=== PATIENT | male | born 1940 | race Caucasian/White ===

== ENCOUNTER → 2017-10-02 07:48 | Outpatient (CLI) | payer MEDICARE, SELFPAY ==
[2017-10-02 09:30] LABS: Add Manual Diff / Slide Review NO; Basophils Percent Auto 0.9 % (0-2); Eosinophils Percent Auto 3.2 % (2-4); Hematocrit 35.3 % (41-53); Lymphocytes Percent Auto 22.6 % (25-40); Mean Corpuscular HGB Conc 33.9 % (30-36); Mean Corpuscular Hemoglobin 32.5 PG (26-34); Mean Corpuscular Volume 95.8 fL (80-100); Monocytes Percent Auto 14.3 % (3-14); Neutrophils Absolute Auto 3300 /uL (3000-5900); Platelet Count 288 X10^3/uL (150-400); Red Blood Cell Count 3.69 X10^6/uL (4.5-5.9); Red Cell Distribution Width 15.2 % (11.6-14.8); White Blood Cell Count 5.6 X10^3/uL (4.5-11.0)
[2017-10-02 09:45] LABS: Alanine Aminotransferase 40 IU/L (21-72); Albumin 4.3 g/dL (3.5-5.0); Albumin Globulin Ratio 1.4 (1.0-2.8); Alkaline Phosphatase 94 U/L (38-126); Aspartate Aminotransferase 195 IU/L (17-59); BUN Creatinine Ratio 22.5 (6-22); Bilirubin Total 0.5 mg/dL (0.2-1.3); Blood Urea Nitrogen 18 mg/dL (9-20); Calcium 10.2 mg/dL (8.4-10.2); Carbon Dioxide 29 mmol/L (22-32); Chloride 96 mmol/L (98-107); Cholesterol 172 mg/dL (140-199); Estimated Glomerular Filt Rate > 60.0 mL/min (>60); Globulin 3.1 g/dL (1.7-4.1); Glucose 99 mg/dL (80-110); HDL Cholesterol 57 mg/dL (40-60); HEMOLYSIS < 15 (0-50); LDL Cholesterol Calculated 103 mg/dL (<100); Potassium 4.7 mmol/L (3.4-5.1); Sodium 136 mmol/L (137-145); Total Protein 7.4 g/dL (6.3-8.2); Triglycerides 58 mg/dL (35-150)
[2017-10-02 10:14] LABS: Prostate Specific Antigen Scrn 1.02 ng/mL (0.1-4.0)
== END ==
PROVIDERS: PCP Internal Medicine; Visit Provider Internal Medicine
DX: I10 Essential (primary) hypertension (principal); R74.0 Nonspecific elevation of levels of transaminase and lactic acid dehydrogenase [LDH]
CPT/HCPCS: 36415; 80053; 80061; 85025; G0103

== ENCOUNTER → 2018-04-17 08:17 | Outpatient (CLI) | payer MEDICARE, SELFPAY ==
[2018-04-17 09:22] LABS: Alanine Aminotransferase 37 IU/L (21-72); Albumin 4.6 g/dL (3.5-5.0); Albumin Globulin Ratio 1.7 (1.0-2.8); Alkaline Phosphatase 70 U/L (38-126); Aspartate Aminotransferase 211 IU/L (17-59); BUN Creatinine Ratio 23.3 (6-22); Bilirubin Total 0.8 mg/dL (0.2-1.3); Bilirubin Unconjugated 0.6 mg/dL (0.0-1.1); Blood Urea Nitrogen 21 mg/dL (9-20); Calcium 10.2 mg/dL (8.4-10.2); Carbon Dioxide 26 mmol/L (22-32); Chloride 97 mmol/L (98-107); Cholesterol 146 mg/dL (140-199); Estimated Glomerular Filt Rate > 60.0 mL/min (>60); Globulin 2.7 g/dL (1.7-4.1); Glucose 100 mg/dL (80-110); HDL Cholesterol 58 mg/dL (40-60); HEMOLYSIS < 15 (0-50); LDL Cholesterol Calculated 72 mg/dL (<100); Potassium 4.5 mmol/L (3.4-5.1); Sodium 136 mmol/L (137-145); Total Protein 7.3 g/dL (6.3-8.2); Triglycerides 78 mg/dL (35-150)
== END ==
PROVIDERS: PCP Internal Medicine; Visit Provider Internal Medicine
DX: I10 Essential (primary) hypertension (principal); C24.0 Malignant neoplasm of extrahepatic bile duct; E78.00 Pure hypercholesterolemia, unspecified
CPT/HCPCS: 36415; 80048; 80061; 80076

== ENCOUNTER → 2018-10-15 08:09 | Outpatient (CLI) | payer MEDICARE, SELFPAY ==
[2018-10-15 09:42] LABS: BUN Creatinine Ratio 16.7 (6-22); Blood Urea Nitrogen 15 mg/dL (9-20); Calcium 10.2 mg/dL (8.4-10.2); Carbon Dioxide 29 mmol/L (22-32); Chloride 97 mmol/L (98-107); Estimated Glomerular Filt Rate > 60.0 mL/min (>60); Glucose 99 mg/dL (80-110); HEMOLYSIS < 15 (0-50); Potassium 4.2 mmol/L (3.4-5.1); Sodium 134 mmol/L (137-145)
== END ==
PROVIDERS: PCP Internal Medicine; Visit Provider Internal Medicine
DX: I10 Essential (primary) hypertension (principal)
CPT/HCPCS: 36415; 80048

== ENCOUNTER → 2019-04-19 08:14 | Outpatient (CLI) | payer MEDICARE, SELFPAY ==
[2019-04-19 09:02] LABS: Add Manual Diff / Slide Review NO; Basophils Absolute Auto 0 /uL (0-100); Basophils Percent Auto 0.6 % (0-2); Eosinophils Absolute Auto 200 /uL (0-450); Eosinophils Percent Auto 3.6 % (2-4); Hematocrit 42.6 % (41-53); Hemoglobin 14.6 g/dL (13.5-17.5); Lymphocytes Absolute Auto 1400 /uL (1100-4500); Lymphocytes Percent Auto 20.4 % (25-40); Mean Corpuscular HGB Conc 34.1 % (30-36); Mean Corpuscular Hemoglobin 33.1 PG (26-34); Mean Corpuscular Volume 96.9 fL (80-100); Monocytes Absolute Auto 700 /uL (0-900); Monocytes Percent Auto 9.8 % (3-14); Neutrophils Absolute Auto 4500 /uL (1500-7000); Neutrophils Percent Auto 65.6 % (50-75); Platelet Count 214 X10^3/uL (150-400); Red Cell Distribution Width 12.8 % (11.6-14.8); White Blood Cell Count 6.8 X10^3/uL (4.5-11.0)
[2019-04-19 09:44] LABS: Alanine Aminotransferase 46 IU/L (<50); Albumin 4.5 g/dL (3.5-5.0); Albumin Globulin Ratio 1.7 (1.0-2.8); Alkaline Phosphatase 96 U/L (38-126); Aspartate Aminotransferase 305 IU/L (17-59); BUN Creatinine Ratio 25.6 (6-22); Bilirubin Total 0.6 mg/dL (0.2-1.3); Blood Urea Nitrogen 23 mg/dL (9-20); Calcium 10.8 mg/dL (8.4-10.2); Carbon Dioxide 30 mmol/L (22-32); Chloride 98 mmol/L (98-107); Cholesterol 157 mg/dL (140-199); Estimated Glomerular Filt Rate > 60.0 mL/min (>60); Globulin 2.7 g/dL (1.7-4.1); Glucose 95 mg/dL (80-110); HDL Cholesterol 50 mg/dL (40-60); HEMOLYSIS < 15 (0-50); LDL Cholesterol Calculated 97 mg/dL (<100); Potassium 4.8 mmol/L (3.4-5.1); Sodium 136 mmol/L (137-145); Total Protein 7.2 g/dL (6.3-8.2); Triglycerides 49 mg/dL (35-150)
== END ==
PROVIDERS: PCP Internal Medicine; Visit Provider Internal Medicine
DX: F41.9 Anxiety disorder, unspecified (principal); I10 Essential (primary) hypertension; E78.00 Pure hypercholesterolemia, unspecified; C24.0 Malignant neoplasm of extrahepatic bile duct; I11.0 Hypertensive heart disease with heart failure
CPT/HCPCS: 36415; 80053; 80061; 85025

== ENCOUNTER → 2019-11-01 08:20 | Outpatient (CLI) | payer MEDICARE, SELFPAY ==
[2019-11-01 10:27] LABS: Alanine Aminotransferase 47 IU/L (<50); Albumin 4.5 g/dL (3.5-5.0); Albumin Globulin Ratio 1.7 (1.0-2.8); Alkaline Phosphatase 96 U/L (38-126); Aspartate Aminotransferase 329 IU/L (17-59); BUN Creatinine Ratio 18.8 (6-22); Bilirubin Total 0.5 mg/dL (0.2-1.3); Blood Urea Nitrogen 15 mg/dL (9-20); Calcium 10.1 mg/dL (8.4-10.2); Carbon Dioxide 25 mmol/L (22-32); Chloride 98 mmol/L (98-107); Estimated Glomerular Filt Rate > 60.0 mL/min (>60); Globulin 2.7 g/dL (1.7-4.1); Glucose 102 mg/dL (80-110); HEMOLYSIS < 15 (0-50); Potassium 4.9 mmol/L (3.4-5.1); Sodium 132 mmol/L (137-145); Total Protein 7.2 g/dL (6.3-8.2)
== END ==
PROVIDERS: PCP Internal Medicine
DX: C22.1 Intrahepatic bile duct carcinoma (principal)
CPT/HCPCS: 36415; 80053

== ENCOUNTER → 2019-11-22 08:02 | Outpatient (CLI) | payer MEDICARE, SELFPAY ==
[2019-11-22 09:50] LABS: Alanine Aminotransferase 43 IU/L (<50); Albumin 4.6 g/dL (3.5-5.0); Albumin Globulin Ratio 1.8 (1.0-2.8); Alkaline Phosphatase 111 U/L (38-126); Aspartate Aminotransferase 323 IU/L (17-59); BUN Creatinine Ratio 21.7 (6-22); Bilirubin Total 0.5 mg/dL (0.2-1.3); Blood Urea Nitrogen 18 mg/dL (9-20); Calcium 10.5 mg/dL (8.4-10.2); Carbon Dioxide 26 mmol/L (22-32); Chloride 100 mmol/L (98-107); Estimated Glomerular Filt Rate > 60.0 mL/min (>60); Globulin 2.6 g/dL (1.7-4.1); Glucose 109 mg/dL (80-110); HEMOLYSIS < 15 (0-50); Sodium 134 mmol/L (137-145); Total Protein 7.2 g/dL (6.3-8.2)
== END ==
PROVIDERS: PCP Internal Medicine
DX: C22.1 Intrahepatic bile duct carcinoma (principal)
CPT/HCPCS: 36415; 80053

== ENCOUNTER → 2019-12-16 08:03 | Outpatient (CLI) | payer MEDICARE, SELFPAY ==
[2019-12-16 10:41] LABS: Alanine Aminotransferase 96 IU/L (<50); Albumin 4.4 g/dL (3.5-5.0); Albumin Globulin Ratio 1.5 (1.0-2.8); Alkaline Phosphatase 134 U/L (38-126); Aspartate Aminotransferase 414 IU/L (17-59); BUN Creatinine Ratio 19.8 (6-22); Bilirubin Total 0.5 mg/dL (0.2-1.3); Blood Urea Nitrogen 18 mg/dL (9-20); Calcium 9.9 mg/dL (8.4-10.2); Carbon Dioxide 28 mmol/L (22-32); Chloride 98 mmol/L (98-107); Estimated Glomerular Filt Rate > 60.0 mL/min (>60); Globulin 2.9 g/dL (1.7-4.1); Glucose 82 mg/dL (80-110); HEMOLYSIS < 15 (0-50); Potassium 4.8 mmol/L (3.4-5.1); Sodium 133 mmol/L (137-145); Total Protein 7.3 g/dL (6.3-8.2)
== END ==
PROVIDERS: PCP Internal Medicine
DX: C22.1 Intrahepatic bile duct carcinoma (principal)
CPT/HCPCS: 36415; 80053

== ENCOUNTER → 2020-01-04 08:22 | Outpatient (CLI) | payer MEDICARE, SELFPAY ==
[2020-01-04 09:41] LABS: Alanine Aminotransferase 119 IU/L (<50); Albumin 4.3 g/dL (3.5-5.0); Albumin Globulin Ratio 1.5 (1.0-2.8); Alkaline Phosphatase 158 U/L (38-126); Aspartate Aminotransferase 425 IU/L (17-59); Bilirubin Total 0.4 mg/dL (0.2-1.3); Blood Urea Nitrogen 19 mg/dL (9-20); Calcium 10.4 mg/dL (8.4-10.2); Carbon Dioxide 28 mmol/L (22-32); Chloride 97 mmol/L (98-107); Estimated Glomerular Filt Rate > 60.0 mL/min (>60); Globulin 2.9 g/dL (1.7-4.1); Glucose 81 mg/dL (80-110); HEMOLYSIS < 15 (0-50); Potassium 5.3 mmol/L (3.4-5.1); Sodium 132 mmol/L (137-145); Total Protein 7.2 g/dL (6.3-8.2)
== END ==
PROVIDERS: PCP Internal Medicine
DX: C22.1 Intrahepatic bile duct carcinoma (principal)
CPT/HCPCS: 36415; 80053

== ENCOUNTER → 2020-02-15 08:29 | Outpatient (CLI) | payer MEDICARE, SELFPAY ==
[2020-02-15 09:56] LABS: Alanine Aminotransferase 65 IU/L (<50); Albumin 4.4 g/dL (3.5-5.0); Albumin Globulin Ratio 1.4 (1.0-2.8); Alkaline Phosphatase 128 U/L (38-126); Aspartate Aminotransferase 356 IU/L (17-59); BUN Creatinine Ratio 19.4 (6-22); Bilirubin Total 0.5 mg/dL (0.2-1.3); Blood Urea Nitrogen 19 mg/dL (9-20); Calcium 10.1 mg/dL (8.4-10.2); Carbon Dioxide 29 mmol/L (22-32); Chloride 98 mmol/L (98-107); Estimated Glomerular Filt Rate > 60.0 mL/min (>60); Globulin 3.2 g/dL (1.7-4.1); Glucose 91 mg/dL (80-110); HEMOLYSIS < 15 (0-50); Potassium 4.5 mmol/L (3.4-5.1); Sodium 133 mmol/L (137-145); Total Protein 7.6 g/dL (6.3-8.2)
== END ==
PROVIDERS: PCP Internal Medicine
DX: C22.1 Intrahepatic bile duct carcinoma (principal)
CPT/HCPCS: 36415; 80053

== ENCOUNTER → 2020-03-21 09:23 | Outpatient (CLI) | payer MEDICARE, SELFPAY ==
[2020-03-21 11:27] LABS: Alanine Aminotransferase 192 IU/L (<50); Albumin 4.7 g/dL (3.5-5.0); Albumin Globulin Ratio 1.5 (1.0-2.8); Alkaline Phosphatase 146 U/L (38-126); Aspartate Aminotransferase 499 IU/L (17-59); BUN Creatinine Ratio 20.4 (6-22); Bilirubin Total 0.7 mg/dL (0.2-1.3); Blood Urea Nitrogen 19 mg/dL (9-20); Calcium 10.1 mg/dL (8.4-10.2); Carbon Dioxide 28 mmol/L (22-32); Chloride 97 mmol/L (98-107); Estimated Glomerular Filt Rate > 60.0 mL/min (>60); Globulin 3.1 g/dL (1.7-4.1); Glucose 94 mg/dL (80-110); HEMOLYSIS < 15 (0-50); Potassium 4.9 mmol/L (3.4-5.1); Sodium 132 mmol/L (137-145); Total Protein 7.8 g/dL (6.3-8.2)
== END ==
PROVIDERS: PCP Internal Medicine
DX: C22.1 Intrahepatic bile duct carcinoma (principal)
CPT/HCPCS: 36415; 80053

== ENCOUNTER → 2020-06-05 10:20 | Outpatient (CLI) | payer MEDICARE, SELFPAY ==
[2020-06-05 11:55] LABS: Alanine Aminotransferase 168 IU/L (<50); Albumin 4.2 g/dL (3.5-5.0); Albumin Globulin Ratio 1.3 (1.0-2.8); Alkaline Phosphatase 141 U/L (38-126); Aspartate Aminotransferase 356 IU/L (17-59); BUN Creatinine Ratio 18.9 (6-22); Bilirubin Total 0.2 mg/dL (0.2-1.3); Blood Urea Nitrogen 17 mg/dL (9-20); Carbon Dioxide 29 mmol/L (22-32); Chloride 98 mmol/L (98-107); Estimated Glomerular Filt Rate > 60.0 mL/min (>60); Globulin 3.2 g/dL (1.7-4.1); Glucose 70 mg/dL (80-110); HEMOLYSIS < 15 (0-50); Potassium 4.5 mmol/L (3.4-5.1); Sodium 133 mmol/L (137-145); Total Protein 7.4 g/dL (6.3-8.2)
== END ==
PROVIDERS: PCP Internal Medicine
DX: C22.1 Intrahepatic bile duct carcinoma (principal)
CPT/HCPCS: 36415; 80053

== ENCOUNTER → 2020-11-09 08:33 | Outpatient (CLI) | payer MEDICARE, SELFPAY ==
[2020-11-09 09:51] LABS: Add Manual Diff / Slide Review NO; Basophils Absolute Auto 100 /uL (0-100); Eosinophils Absolute Auto 200 /uL (0-450); Eosinophils Percent Auto 3.4 % (2-4); Hematocrit 43.1 % (41-53); Hemoglobin 14.5 g/dL (13.5-17.5); Lymphocytes Absolute Auto 1400 /uL (1100-4500); Lymphocytes Percent Auto 20.6 % (25-40); Mean Corpuscular HGB Conc 33.7 % (30-36); Mean Corpuscular Hemoglobin 33.2 PG (26-34); Mean Corpuscular Volume 98.5 fL (80-100); Monocytes Absolute Auto 700 /uL (0-900); Monocytes Percent Auto 10.4 % (3-14); Neutrophils Absolute Auto 4300 /uL (1500-7000); Neutrophils Percent Auto 64.6 % (50-75); Platelet Count 235 X10^3/uL (150-400); Red Blood Cell Count 4.38 X10^6/uL (4.5-5.9); Red Cell Distribution Width 13.2 % (11.6-14.8); White Blood Cell Count 6.7 X10^3/uL (4.5-11.0)
[2020-11-09 10:17] LABS: Alanine Aminotransferase 113 IU/L (<50); Albumin 4.5 g/dL (3.5-5.0); Albumin Globulin Ratio 1.5 (1.0-2.8); Alkaline Phosphatase 182 U/L (38-126); Aspartate Aminotransferase 411 IU/L (17-59); Bilirubin Total 0.5 mg/dL (0.2-1.3); Blood Urea Nitrogen 15 mg/dL (9-20); Calcium 10.2 mg/dL (8.4-10.2); Carbon Dioxide 29 mmol/L (22-32); Chloride 97 mmol/L (98-107); Estimated Glomerular Filt Rate > 60.0 mL/min (>60); Globulin 3.1 g/dL (1.7-4.1); Glucose 86 mg/dL (80-110); HEMOLYSIS < 15 (0-50); Potassium 4.4 mmol/L (3.4-5.1); Sodium 132 mmol/L (137-145); Total Protein 7.6 g/dL (6.3-8.2)
== END ==
PROVIDERS: PCP Internal Medicine
DX: C22.1 Intrahepatic bile duct carcinoma (principal); K83.1 Obstruction of bile duct
CPT/HCPCS: 36415; 80053; 85025

== ENCOUNTER → 2021-07-04 12:09 | Outpatient (CLI) | payer MEDICARE, SELFPAY ==
[2021-07-04 12:37] LABS: Add Manual Diff / Slide Review NO; Basophils Absolute Auto 0 /uL (0-100); Basophils Percent Auto 0.2 % (0-2); Eosinophils Absolute Auto 100 /uL (0-450); Eosinophils Percent Auto 0.5 % (2-4); Hematocrit 38.2 % (41-53); Hemoglobin 13.2 g/dL (13.5-17.5); Lymphocytes Absolute Auto 1200 /uL (1100-4500); Lymphocytes Percent Auto 7.7 % (25-40); Mean Corpuscular HGB Conc 34.5 % (30-36); Mean Corpuscular Hemoglobin 33.2 PG (26-34); Mean Corpuscular Volume 96.4 fL (80-100); Monocytes Absolute Auto 1100 /uL (0-900); Neutrophils Absolute Auto 13000 /uL (1500-7000); Neutrophils Percent Auto 84.6 % (50-75); Platelet Count 264 X10^3/uL (150-400); Red Blood Cell Count 3.97 X10^6/uL (4.5-5.9); White Blood Cell Count 15.4 X10^3/uL (4.5-11.0)
[2021-07-04 12:41] LABS: INR 1.2 (0.9-1.3); Prothrombin Time 13.7 SECONDS (10.1-12.7)
[2021-07-04 12:50] LABS: Alanine Aminotransferase 101 IU/L (<50); Albumin 4.2 g/dL (3.5-5.0); Albumin Globulin Ratio 1.1 (1.0-2.8); Alkaline Phosphatase 622 U/L (38-126); Aspartate Aminotransferase 395 IU/L (17-59); BUN Creatinine Ratio 24.3 (6-22); Bilirubin Total 1.3 mg/dL (0.2-1.3); Blood Urea Nitrogen 26 mg/dL (9-20); Calcium 10.2 mg/dL (8.4-10.2); Carbon Dioxide 29 mmol/L (22-32); Chloride 94 mmol/L (98-107); Estimated Glomerular Filt Rate > 60.0 mL/min (>60); Globulin 3.9 g/dL (1.7-4.1); Glucose 111 mg/dL (80-110); HEMOLYSIS < 15 (0-50); Potassium 4.4 mmol/L (3.4-5.1); Sodium 129 mmol/L (137-145); Total Protein 8.1 g/dL (6.3-8.2)
== END ==
PROVIDERS: PCP Internal Medicine
DX: C22.1 Intrahepatic bile duct carcinoma (principal)
CPT/HCPCS: 36415; 80053; 85025; 85610

== ENCOUNTER → 2021-08-02 12:54 | Outpatient (CLI) | payer MEDICARE, SELFPAY ==
[2021-08-02 13:43] LABS: Add Manual Diff / Slide Review NO; Basophils Absolute Auto 100 /uL (0-100); Basophils Percent Auto 0.7 % (0-2); Eosinophils Absolute Auto 200 /uL (0-450); Eosinophils Percent Auto 1.5 % (2-4); Hematocrit 40.4 % (41-53); Hemoglobin 13.9 g/dL (13.5-17.5); Lymphocytes Absolute Auto 1500 /uL (1100-4500); Lymphocytes Percent Auto 13.8 % (25-40); Mean Corpuscular HGB Conc 34.3 % (30-36); Mean Corpuscular Hemoglobin 33.3 PG (26-34); Mean Corpuscular Volume 96.9 fL (80-100); Monocytes Absolute Auto 1000 /uL (0-900); Monocytes Percent Auto 9.1 % (3-14); Neutrophils Absolute Auto 7900 /uL (1500-7000); Neutrophils Percent Auto 74.9 % (50-75); Platelet Count 268 X10^3/uL (150-400); Red Blood Cell Count 4.17 X10^6/uL (4.5-5.9); Red Cell Distribution Width 14.8 % (11.6-14.8); White Blood Cell Count 10.6 X10^3/uL (4.5-11.0)
[2021-08-02 14:46] LABS: Alanine Aminotransferase 152 IU/L (<50); Albumin 4.3 g/dL (3.5-5.0); Albumin Globulin Ratio 1.1 (1.0-2.8); Alkaline Phosphatase 771 U/L (38-126); Aspartate Aminotransferase 546 IU/L (17-59); Bilirubin Total 1.3 mg/dL (0.2-1.3); Blood Urea Nitrogen 18 mg/dL (9-20); Carbon Dioxide 28 mmol/L (22-32); Chloride 98 mmol/L (98-107); Estimated Glomerular Filt Rate > 60.0 mL/min (>60); Globulin 3.9 g/dL (1.7-4.1); Glucose 93 mg/dL (80-110); Sodium 133 mmol/L (137-145); Total Protein 8.2 g/dL (6.3-8.2)
[2021-08-02 14:50] LABS: HEMOLYSIS 62 (0-50)
[2021-08-03 06:42] LABS: Cancer (Carbohydrate) Ag 19-9 1103 U/mL (0-35)
== END ==
PROVIDERS: PCP Internal Medicine; Referring Provider Internal Medicine; Visit Provider Internal Medicine
DX: C22.1 Intrahepatic bile duct carcinoma (principal)
CPT/HCPCS: 36415; 80053; 85025; 86301

== ENCOUNTER 2021-09-06 14:30 | Emergency (ER) | payer MEDICARE, SELFPAY ==
[2021-09-06] VITALS (26 sets, daily range): BP systolic 86–150; BP diastolic 46–65; PULSE 96–121; RESP 19–32; TEMP 37.9–39.4; O2SAT 93–97; BMI 20.7
--- NOTE | 2021-09-06 14:44 | DI.RAD.S_ITS ---
PROCEDURE: XR CHEST 1V INDICATIONS: suspected sepsis TECHNIQUE: One view of the chest was acquired. COMPARISON: [facility], , CHEST 2 VIEW, 01/23/2015, 10:21. FINDINGS: Surgical changes and devices: None. Lungs and pleura: Lungs are clear. No pleural effusions or pneumothorax. Mediastinum: Mediastinal contours appear normal. Heart size is normal. Bones and chest wall: No suspicious bony lesions. Overlying soft tissues appear unremarkable. IMPRESSION: No evidence acute pulmonary process. Dictated by: Nick Su M.D. on 09/06/2021 at 15:22 Approved by: Nick Su M.D. on 09/06/2021 at 15:22
[2021-09-06 14:59] LABS: Add Manual Diff / Slide Review NO; Basophils Absolute Auto 200 /uL (0-100); Basophils Percent Auto 0.7 % (0-2); Eosinophils Absolute Auto 0 /uL (0-450); Hematocrit 36.3 % (41-53); Hemoglobin 12.3 g/dL (13.5-17.5); Lymphocytes Absolute Auto 200 /uL (1100-4500); Lymphocytes Percent Auto 0.9 % (25-40); Mean Corpuscular HGB Conc 33.9 % (30-36); Mean Corpuscular Hemoglobin 33.7 PG (26-34); Mean Corpuscular Volume 99.3 fL (80-100); Monocytes Absolute Auto 200 /uL (0-900); Neutrophils Absolute Auto 22700 /uL (1500-7000); Neutrophils Percent Auto 97.4 % (50-75); Platelet Count 219 X10^3/uL (150-400); Red Blood Cell Count 3.66 X10^6/uL (4.5-5.9); Red Cell Distribution Width 13.7 % (11.6-14.8); White Blood Cell Count 23.3 X10^3/uL (4.5-11.0)
[2021-09-06 15:04] LABS: INR 1.2 (0.9-1.3); Prothrombin Time 13.7 SECONDS (10.1-12.7)
[2021-09-06 15:07] LABS: PTT Partial Thromboplastin Tim 33 SECONDS (26.4-36.2)
--- NOTE | 2021-09-06 15:09 | ED.SEPSIS ---
HPI - Sepsis <Zonia Slater DO - Last Filed: 09/11/21 07:27> General Chief Complaint: Urogenital-Male Mode of arrival: EMS Source: patient and EMS Evaluation Sepsis Screen: Possible Sepsis Risk Sepsis Infection Criteria Present: Suspected New Infection Narrative: Patient is an 81-year-old male with history of hypertension presenting with fever and possible UTI from primary care provider's office. He apparently went there for body aches fever and chills. He was found have elevated heart rate at 112 and temperature 103?. This remains true in the emergency department. Patient is actually quite confused but able to give some history. He actually denies any pain cough shortness of breath abdominal pain nausea vomiting. Really only complaining of body aches. Denies any painful or frequent urination. Has no chest pain. Sounds as though it has been going on for 1-2 days. Review of Systems <Zonia Slater DO - Last Filed: 09/11/21 07:27> Review of Systems Narrative: GENERAL: See HPI HEENT: Denies sinus pain, ear pain, sore throat, difficulty swallowing, neck pain RESPIRATORY: Denies dyspnea, cough, wheezing, hemoptysis, sputum. CARDIOVASCULAR: Denies chest pain, palpitations, orthopnea, edema GASTROINTESTINAL: Denies nausea, vomiting, abdominal pain, diarrhea, constipation, melena. : See HPI MUSCULOSKELETAL: Denies weakness, joint pain, or bony pain SKIN: No rash, no erythema, no pruritus NEUROLOGIC: Denies weakness, dizziness, headache, numbness, change in speech, confusion PSYCHIATRIC: No concerning psychosocial issues. 12 point review of systems is negative except for those stated above and HPI Patient History <Zonia Slater DO - Last Filed: 09/11/21 07:27> Social History Smoking Status: Unknown if ever smoked Smoking Status: Unknown if ever smoked alcohol intake frequency: holidays/special occasions only Substance Use Type: does not use Exam <Zonia Slater DO - Last Filed: 09/11/21 07:27> Initial Vital Signs Initial Vital Signs: Vital Signs Pulse Rate 121 H 09/06/21 14:39 Pulse Oximetry 95 09/06/21 14:39 GENERAL: Alert pleasant well-appearing 81-year-old male HEENT: Head atraumatic,EOMI, pupils reactive, face symmetric, moist mucous membranes CARDIOVASCULAR: Regular rate and rhythm without murmurs, rubs or gallops. RESPIRATORY: Breath sounds equal bilaterally, no wheezes rales or rhonchi. ABDOMEN: Soft, nontender. Normoactive bowel sounds all 4 quadrants. No guarding or rebound. : No CVA tenderness EXTREMITIES: Normal range of motion, no clubbing or edema. Neurovascularly intact NEUROLOGICAL: Alert and oriented x2.Normal gait and speech. Cranial nerves II through XII grossly intact. SKIN: Warm, dry, no laceration, no petechiae, no rashes or lesions. <Nelson Lozano DO - Last Filed: 09/07/21 18:04> Initial Vital Signs Initial Vital Signs: Vital Signs Pulse Rate 121 H 09/06/21 14:39 Pulse Oximetry 95 09/06/21 14:39 <Sam Samuels DO - Last Filed: 09/07/21 11:58> Initial Vital Signs Initial Vital Signs: Vital Signs Pulse Rate 121 H 09/06/21 14:39 Pulse Oximetry 95 09/06/21 14:39 Course <Zonia Slater DO - Last Filed: 09/11/21 07:27> Orders Ordered: Discontinued Medications Acetaminophen (Acetaminophen 325 Mg Tablet) 975 mg PO NOW ONE Stop: 09/06/21 15:31 Last Admin: 09/06/21 15:56 Dose: 975 mg Documented by: ELISSA Sodium Chloride (Normal Saline 0.9%) 1,000 mls @ 1,000 mls/hr IV BOLUS ONE Stop: 09/06/21 15:43 Last Infusion: 09/06/21 17:37 Dose: 0 mls/hr Documented by: Admin: 09/06/21 15:43 Dose: 1,000 mls/hr Documented by: ELISSA Piperacillin Sod/Tazobactam (Sod 4.5 gm/ Sodium Chloride) 100 mls @ 200 mls/hr IV NOW ONE Stop: 09/06/21 15:23 Last Infusion: 09/06/21 17:03 Dose: 0 mls/hr Documented by: Admin: 09/06/21 15:53 Dose: 200 mls/hr Documented by: ELISSA Lactated Ringer's (Lactated Ringers) 1,905.09 mls @ 635.03 mls/hr 30 ml/kg infuse over 3 hr (1905.09 ml) IV NOW ONE Stop: 09/06/21 18:50 Last Infusion: 09/06/21 20:06 Dose: 0 mls/hr Documented by: Admin: 09/06/21 17:03 Dose: 635.03 mls/hr Documented by: TEDDY Vancomycin HCl (Vancomycin) 1,000 mg in 200 mls @ 200 mls/hr IV NOW ONE Stop: 09/06/21 16:50 Last Infusion: 09/06/21 18:42 Dose: 0 mls/hr Documented by: ЮЛИЯ Admin: 09/06/21 17:15 Dose: 200 mls/hr Documented by: TEDDY Metronidazole (Flagyl) 500 mg in 100 mls @ 100 mls/hr IV NOW ONE Stop: 09/06/21 18:14 Last Infusion: 09/06/21 18:42 Dose: 0 mls/hr Documented by: ЮЛИЯ Admin: 09/06/21 17:38 Dose: 100 mls/hr Documented by: TEDDY Piperacillin Sod/Tazobactam (Sod 4.5 gm/ Sodium Chloride) 100 mls @ 200 mls/hr IV Q6H [facility] Last Admin: 09/06/21 22:41 Dose: Not Given Documented by: TEDDY Metronidazole (Flagyl) 500 mg in 100 mls @ 100 mls/hr IV NOW ONE Stop: 09/06/21 21:48 Last Infusion: 09/06/21 22:02 Dose: 0 mls/hr Documented by: Admin: 09/06/21 21:03 Dose: 100 mls/hr Documented by: TEDDY Lactated Ringer's (Lactated Ringers) 1,000 mls @ 100 mls/hr IV CONT [facility] Last Infusion: 09/07/21 08:46 Dose: 0 mls/hr Documented by: Admin: 09/06/21 21:02 Dose: 100 mls/hr Documented by: TEDDY Piperacillin Sod/Tazobactam (Sod 3.375 gm/ Sodium Chloride) 100 mls @ 25 mls/hr IV Q8H [facility] Last Infusion: 09/07/21 09:35 Dose: 0 mls/hr Documented by: Admin: 09/07/21 05:19 Dose: 25 mls/hr Documented by: Infusion: 09/07/21 02:33 Dose: 0 mls/hr Documented by: Admin: 09/06/21 22:17 Dose: 25 mls/hr Documented by: TEDDY Metronidazole (Flagyl) 500 mg in 100 mls @ 100 mls/hr IV Q8H [facility] Last Infusion: 09/07/21 05:16 Dose: 0 mls/hr Documented by: Admin: 09/07/21 04:15 Dose: 100 mls/hr Documented by: GRACE Vancomycin HCl (Vancomycin) 1,250 mg in 250 mls @ 200 mls/hr IV NOW [facility] Stop: 09/07/21 11:00 Sodium Chloride (Normal Saline 0.9%) 1,000 mls @ 100 mls/hr IV CONT [facility] Last Infusion: 09/07/21 10:56 Dose: 0 mls/hr Documented by: Admin: 09/07/21 09:30 Dose: 100 mls/hr Documented by: SARA Morphine Sulfate (Morphine 2 Mg/Ml Inj) 2 mg IV NOW ONE Stop: 09/06/21 17:44 Last Admin: 09/06/21 17:46 Dose: 2 mg Documented by: TEDDY Morphine Sulfate (Morphine 2 Mg/Ml Inj) 2 mg IV NOW ONE Stop: 09/06/21 18:18 Last Admin: 09/06/21 18:21 Dose: 2 mg Documented by: TEDDY Vancomycin HCl (Vancomycin Per Pharmacy) 1 request MISC NOW ONE Stop: 09/07/21 07:13 Last Admin: 09/07/21 07:17 Dose: 1 request Documented by: SARA Vital Signs Vital signs: Vital Signs - 8 hr 09/07/21 10:30 09/07/21 10:50 09/07/21 10:56 Temperature 97.9 F Pulse Rate 78 Respiratory Rate 15 Blood Pressure 119/59 L Pulse Oximetry 96 <Nelson Lozano DO - Last Filed: 09/07/21 18:04> Orders Ordered: Discontinued Medications Acetaminophen (Acetaminophen 325 Mg Tablet) 975 mg PO NOW ONE Stop: 09/06/21 15:31 Last Admin: 09/06/21 15:56 Dose: 975 mg Documented by: ELISSA Sodium Chloride (Normal Saline 0.9%) 1,000 mls @ 1,000 mls/hr IV BOLUS ONE Stop: 09/06/21 15:43 Last Infusion: 09/06/21 17:37 Dose: 0 mls/hr Documented by: Admin: 09/06/21 15:43 Dose: 1,000 mls/hr Documented by: ELISSA Piperacillin Sod/Tazobactam (Sod 4.5 gm/ Sodium Chloride) 100 mls @ 200 mls/hr IV NOW ONE Stop: 09/06/21 15:23 Last Infusion: 09/06/21 17:03 Dose: 0 mls/hr Documented by: Admin: 09/06/21 15:53 Dose: 200 mls/hr Documented by: ELISSA Lactated Ringer's (Lactated Ringers) 1,905.09 mls @ 635.03 mls/hr 30 ml/kg infuse over 3 hr (1905.09 ml) IV NOW ONE Stop: 09/06/21 18:50 Last Infusion: 09/06/21 20:06 Dose: 0 mls/hr Documented by: Admin: 09/06/21 17:03 Dose: 635.03 mls/hr Documented by: TEDDY Vancomycin HCl (Vancomycin) 1,000 mg in 200 mls @ 200 mls/hr IV NOW ONE Stop: 09/06/21 16:50 Last Infusion: 09/06/21 18:42 Dose: 0 mls/hr Documented by: ЮЛИЯ Admin: 09/06/21 17:15 Dose: 200 mls/hr Documented by: TEDDY Metronidazole (Flagyl) 500 mg in 100 mls @ 100 mls/hr IV NOW ONE Stop: 09/06/21 18:14 Last Infusion: 09/06/21 18:42 Dose: 0 mls/hr Documented by: ЮЛИЯ Admin: 09/06/21 17:38 Dose: 100 mls/hr Documented by: TEDDY Piperacillin Sod/Tazobactam (Sod 4.5 gm/ Sodium Chloride) 100 mls @ 200 mls/hr IV Q6H [facility] Last Admin: 09/06/21 22:41 Dose: Not Given Documented by: TEDDY Metronidazole (Flagyl) 500 mg in 100 mls @ 100 mls/hr IV NOW ONE Stop: 09/06/21 21:48 Last Infusion: 09/06/21 22:02 Dose: 0 mls/hr Documented by: Admin: 09/06/21 21:03 Dose: 100 mls/hr Documented by: TEDDY Lactated Ringer's (Lactated Ringers) 1,000 mls @ 100 mls/hr IV CONT [facility] Last Infusion: 09/07/21 08:46 Dose: 0 mls/hr Documented by: Admin: 09/06/21 21:02 Dose: 100 mls/hr Documented by: TEDDY Piperacillin Sod/Tazobactam (Sod 3.375 gm/ Sodium Chloride) 100 mls @ 25 mls/hr IV Q8H [facility] Last Infusion: 09/07/21 09:35 Dose: 0 mls/hr Documented by: Admin: 09/07/21 05:19 Dose: 25 mls/hr Documented by: Infusion: 09/07/21 02:33 Dose: 0 mls/hr Documented by: Admin: 09/06/21 22:17 Dose: 25 mls/hr Documented by: TEDDY Metronidazole (Flagyl) 500 mg in 100 mls @ 100 mls/hr IV Q8H [facility] Last Infusion: 09/07/21 05:16 Dose: 0 mls/hr Documented by: Admin: 09/07/21 04:15 Dose: 100 mls/hr Documented by: GRACE Vancomycin HCl (Vancomycin) 1,250 mg in 250 mls @ 200 mls/hr IV NOW [facility] Stop: 09/07/21 11:00 Sodium Chloride (Normal Saline 0.9%) 1,000 mls @ 100 mls/hr IV CONT [facility] Last Infusion: 09/07/21 10:56 Dose: 0 mls/hr Documented by: Admin: 09/07/21 09:30 Dose: 100 mls/hr Documented by: SARA Morphine Sulfate (Morphine 2 Mg/Ml Inj) 2 mg IV NOW ONE Stop: 09/06/21 17:44 Last Admin: 09/06/21 17:46 Dose: 2 mg Documented by: TEDDY Morphine Sulfate (Morphine 2 Mg/Ml Inj) 2 mg IV NOW ONE Stop: 09/06/21 18:18 Last Admin: 09/06/21 18:21 Dose: 2 mg Documented by: TEDDY Vancomycin HCl (Vancomycin Per Pharmacy) 1 request MISC NOW ONE Stop: 09/07/21 07:13 Last Admin: 09/07/21 07:17 Dose: 1 request Documented by: SARA Vital Signs Vital signs: Vital Signs - 8 hr 09/07/21 10:30 09/07/21 10:50 09/07/21 10:56 Temperature 97.9 F Pulse Rate 78 Respiratory Rate 15 Blood Pressure 119/59 L Pulse Oximetry 96 <Sam Samuels DO - Last Filed: 09/07/21 11:58> Orders Ordered: Discontinued Medications Acetaminophen (Acetaminophen 325 Mg Tablet) 975 mg PO NOW ONE Stop: 09/06/21 15:31 Last Admin: 09/06/21 15:56 Dose: 975 mg Documented by: ELISSA Sodium Chloride (Normal Saline 0.9%) 1,000 mls @ 1,000 mls/hr IV BOLUS ONE Stop: 09/06/21 15:43 Last Infusion: 09/06/21 17:37 Dose: 0 mls/hr Documented by: Admin: 09/06/21 15:43 Dose: 1,000 mls/hr Documented by: ELISSA Piperacillin Sod/Tazobactam (Sod 4.5 gm/ Sodium Chloride) 100 mls @ 200 mls/hr IV NOW ONE Stop: 09/06/21 15:23 Last Infusion: 09/06/21 17:03 Dose: 0 mls/hr Documented by: Admin: 09/06/21 15:53 Dose: 200 mls/hr Documented by: ELISSA Lactated Ringer's (Lactated Ringers) 1,905.09 mls @ 635.03 mls/hr 30 ml/kg infuse over 3 hr (1905.09 ml) IV NOW ONE Stop: 09/06/21 18:50 Last Infusion: 09/06/21 20:06 Dose: 0 mls/hr Documented by: Admin: 09/06/21 17:03 Dose: 635.03 mls/hr Documented by: TEDDY Vancomycin HCl (Vancomycin) 1,000 mg in 200 mls @ 200 mls/hr IV NOW ONE Stop: 09/06/21 16:50 Last Infusion: 09/06/21 18:42 Dose: 0 mls/hr Documented by: ЮЛИЯ Admin: 09/06/21 17:15 Dose: 200 mls/hr Documented by: TEDDY Metronidazole (Flagyl) 500 mg in 100 mls @ 100 mls/hr IV NOW ONE Stop: 09/06/21 18:14 Last Infusion: 09/06/21 18:42 Dose: 0 mls/hr Documented by: ЮЛИЯ Admin: 09/06/21 17:38 Dose: 100 mls/hr Documented by: TEDDY Piperacillin Sod/Tazobactam (Sod 4.5 gm/ Sodium Chloride) 100 mls @ 200 mls/hr IV Q6H [facility] Last Admin: 09/06/21 22:41 Dose: Not Given Documented by: TEDDY Metronidazole (Flagyl) 500 mg in 100 mls @ 100 mls/hr IV NOW ONE Stop: 09/06/21 21:48 Last Infusion: 09/06/21 22:02 Dose: 0 mls/hr Documented by: Admin: 09/06/21 21:03 Dose: 100 mls/hr Documented by: TEDDY Lactated Ringer's (Lactated Ringers) 1,000 mls @ 100 mls/hr IV CONT [facility] Last Infusion: 09/07/21 08:46 Dose: 0 mls/hr Documented by: Admin: 09/06/21 21:02 Dose: 100 mls/hr Documented by: TEDDY Piperacillin Sod/Tazobactam (Sod 3.375 gm/ Sodium Chloride) 100 mls @ 25 mls/hr IV Q8H [facility] Last Infusion: 09/07/21 09:35 Dose: 0 mls/hr Documented by: Admin: 09/07/21 05:19 Dose: 25 mls/hr Documented by: Infusion: 09/07/21 02:33 Dose: 0 mls/hr Documented by: Admin: 09/06/21 22:17 Dose: 25 mls/hr Documented by: TEDDY Metronidazole (Flagyl) 500 mg in 100 mls @ 100 mls/hr IV Q8H [facility] Last Infusion: 09/07/21 05:16 Dose: 0 mls/hr Documented by: Admin: 09/07/21 04:15 Dose: 100 mls/hr Documented by: GRACE Vancomycin HCl (Vancomycin) 1,250 mg in 250 mls @ 200 mls/hr IV NOW [facility] Stop: 09/07/21 11:00 Sodium Chloride (Normal Saline 0.9%) 1,000 mls @ 100 mls/hr IV CONT [facility] Last Infusion: 09/07/21 10:56 Dose: 0 mls/hr Documented by: Admin: 09/07/21 09:30 Dose: 100 mls/hr Documented by: SARA Morphine Sulfate (Morphine 2 Mg/Ml Inj) 2 mg IV NOW ONE Stop: 09/06/21 17:44 Last Admin: 09/06/21 17:46 Dose: 2 mg Documented by: TEDDY Morphine Sulfate (Morphine 2 Mg/Ml Inj) 2 mg IV NOW ONE Stop: 09/06/21 18:18 Last Admin: 09/06/21 18:21 Dose: 2 mg Documented by: TEDDY Vancomycin HCl (Vancomycin Per Pharmacy) 1 request MISC NOW ONE Stop: 09/07/21 07:13 Last Admin: 09/07/21 07:17 Dose: 1 request Documented by: SARA Vital Signs Vital signs: Vital Signs - 8 hr 09/07/21 10:30 09/07/21 10:50 09/07/21 10:56 Temperature 97.9 F Pulse Rate 78 Respiratory Rate 15 Blood Pressure 119/59 L Pulse Oximetry 96 Sepsis Guideline Criteria <DO Lisa Oliver Last Filed: 09/11/21 07:27> Level 1 - Infection Sepsis Infection Criteria Present: Suspected New Infection Treatment Initiated Antibiotics:: IV antimicrobials will be initiated as soon as possible after recognition of sepsis state and within one hour for both sepsis and septic shock. MDM - Sepsis <DO Lisa Oilver Last Filed: 09/11/21 07:27> Lab Data Result diagrams: 09/07/21 05:53 09/07/21 05:53 Labs: Lab Results 09/06/21 09/06/21 09/06/21 Range/Units 14:50 14:50 14:50 WBC 23.3 H (4.5-11.0) X10^3/uL RBC 3.66 L (4.5-5.9) X10^6/uL Hgb 12.3 L (13.5-17.5) g/dL Hct 36.3 L (41-53) % MCV 99.3 (80-100) fL MCH 33.7 (26-34) PG MCHC 33.9 (30-36) % RDW 13.7 (11.6-14.8) % Plt Count 219 (150-400) X10^3/uL Neut % (Auto) 97.4 H (50-75) % Lymph % (Auto) 0.9 L (25-40) % [place] % (Auto) 1.0 L (3-14) % Eos % (Auto) 0.0 L (2-4) % Baso % (Auto) 0.7 (0-2) % Neut # (Auto) 47391 H (0860-6672) /uL Lymph # (Auto) 200 L (1415-0668) /uL [place] # (Auto) 200 (0-900) /uL Eos # (Auto) 0 (0-450) /uL Baso # (Auto) 200 H (0-100) /uL Total Counted Seg Neutrophils % (38-70) % Band Neutrophils % (3-7) % Lymphocytes % (Manual) (25-45) % Monocytes % (Manual) (2-11) % Neutrophils # (Manual) (3851-6646) /uL RBC Morphology PT (10.1-12.7) SECONDS INR (0.9-1.3) APTT (26.4-36.2) SECONDS Sodium 132 L (137-145) mmol/L Potassium 3.9 (3.4-5.1) mmol/L Chloride 98 (98-107) mmol/L Carbon Dioxide 21 L (22-32) mmol/L BUN 16 (9-20) mg/dL Creatinine 1.22 (0.66-1.25) mg/dL Estimated GFR 59 L (>60) mL/min BUN/Creatinine Ratio 13.1 (6-22) Glucose 133 H (80-110) mg/dL Lactate 3.3 H (0.7-2.1) mmol/L Calcium 9.6 (8.4-10.2) mg/dL Total Bilirubin 5.6 H (0.2-1.3) mg/dL AST 552 H (17-59) IU/L ALT 150 H (<50) IU/L Alkaline Phosphatase 719 H (38-126) U/L Total Creatine Kinase (55-170) U/L CK-MB (CK-2) CK-MB (CK-2) Rel Index Troponin I (0.01-0.034) ng/mL Total Protein 8.2 (6.3-8.2) g/dL Albumin 4.0 (3.5-5.0) g/dL Globulin 4.2 H (1.7-4.1) g/dL Albumin/Globulin Ratio 1.0 (1.0-2.8) Lipase 39 (23-300) U/L Procalcitonin 10.2 H (<0.5) ng/mL Urine Color Urine Appearance Urine pH (4.5-8.0) Ur Specific [place] (1.000-1.035) Urine Protein (Negative) Urine Glucose (UA) (Negative) g/dL Urine Ketones (NEGATIVE) Urine Occult Blood (Negative) Urine Nitrate (Negative) Urine Bilirubin (NEGATIVE) Ur Bilirubin Confirm (Negative) Urine Urobilinogen (0.2) E.U./dL Ur Leukocyte Esterase (NEGATIVE) Urine RBC Urine WBC Ur Squamous Epith Cells Ur Transition Epith Cell Ur Renal Epithelial Cell Calcium Oxalate Crystal Uric Acid Crystals Triple Phos Crystals Other Crystals Amorphous Sediment Urine Bacteria Hyaline Casts Granular Casts RBC Casts WBC Casts Other Casts Urine Mucus Urine Trichomonas Urine Yeast Urine Sperm Ur Culture Indicated? Micro UA Comment A. baumannii (PCR) (Not Detect) Mela albicans (PCR) (Not Detect) C. glabrata (PCR) (Not Detect) C. krusei (PCR) (Not Detect) C. parapsilosis (PCR) (Not Detect) C. tropicalis (PCR) (Not Detect) SARS-CoV-2 (PCR) (Negative) Enterobacteriac sp PCR (Not Detect) E. cloacae complex PCR (Not Detect) Enterococcus sp PCR (Not Detect) E. coli (PCR) (Not Detect) H. influenzae (PCR) (Not Detect) Klebsiella oxytoca PCR (Not Detect) Klebsiella pneumoniae (Not Detect) List. monocytogenes PCR (Not Detect) N. meningitidis (PCR) (Not Detect) Proteus species (PCR) (Not Detect) Serratia marcescens PCR (Not Detect) Staphylococcus sp PCR (Not Detect) Staph aureus (PCR) (Not Detect) mecA-Methicil Res Gene Streptococcus sp PCR (Not Detect) Group A Strep (PCR) (Not Detect) Strep agalactiae (PCR) (Not Detect) Strep pneumoniae (PCR) (Not Detect) P. aeruginosa (PCR) (Not Detect) Britt/B-Vanco Res Genes KPC-Carbap Res Gene PCR 09/06/21 09/06/21 09/06/21 Range/Units 14:50 14:50 14:50 WBC (4.5-11.0) X10^3/uL RBC (4.5-5.9) X10^6/uL Hgb (13.5-17.5) g/dL Hct (41-53) % MCV (80-100) fL MCH (26-34) PG MCHC (30-36) % RDW (11.6-14.8) % Plt Count (150-400) X10^3/uL Neut % (Auto) (50-75) % Lymph % (Auto) (25-40) % [place] % (Auto) (3-14) % Eos % (Auto) (2-4) % Baso % (Auto) (0-2) % Neut # (Auto) (8527-6824) /uL Lymph # (Auto) (7338-6943) /uL [place] # (Auto) (0-900) /uL Eos # (Auto) (0-450) /uL Baso # (Auto) (0-100) /uL Total Counted Seg Neutrophils % (38-70) % Band Neutrophils % (3-7) % Lymphocytes % (Manual) (25-45) % Monocytes % (Manual) (2-11) % Neutrophils # (Manual) (9533-3416) /uL RBC Morphology PT 13.7 H (10.1-12.7) SECONDS INR 1.2 (0.9-1.3) APTT 33 (26.4-36.2) SECONDS Sodium (137-145) mmol/L Potassium (3.4-5.1) mmol/L Chloride (98-107) mmol/L Carbon Dioxide (22-32) mmol/L BUN (9-20) mg/dL Creatinine (0.66-1.25) mg/dL Estimated GFR (>60) mL/min BUN/Creatinine Ratio (6-22) Glucose (80-110) mg/dL Lactate (0.7-2.1) mmol/L Calcium (8.4-10.2) mg/dL Total Bilirubin (0.2-1.3) mg/dL AST (17-59) IU/L ALT (<50) IU/L Alkaline Phosphatase (38-126) U/L Total Creatine Kinase 62 (55-170) U/L CK-MB (CK-2) TNP CK-MB (CK-2) Rel Index TNP Troponin I < 0.012 (0.01-0.034) ng/mL Total Protein (6.3-8.2) g/dL Albumin (3.5-5.0) g/dL Globulin (1.7-4.1) g/dL Albumin/Globulin Ratio (1.0-2.8) Lipase (23-300) U/L Procalcitonin (<0.5) ng/mL Urine Color Urine Appearance Urine pH (4.5-8.0) Ur Specific [place] (1.000-1.035) Urine Protein (Negative) Urine Glucose (UA) (Negative) g/dL Urine Ketones (NEGATIVE) Urine Occult Blood (Negative) Urine Nitrate (Negative) Urine Bilirubin (NEGATIVE) Ur Bilirubin Confirm (Negative) Urine Urobilinogen (0.2) E.U./dL Ur Leukocyte Esterase (NEGATIVE) Urine RBC Urine WBC Ur Squamous Epith Cells Ur Transition Epith Cell Ur Renal Epithelial Cell Calcium Oxalate Crystal Uric Acid Crystals Triple Phos Crystals Other Crystals Amorphous Sediment Urine Bacteria Hyaline Casts Granular Casts RBC Casts WBC Casts Other Casts Urine Mucus Urine Trichomonas Urine Yeast Urine Sperm Ur Culture Indicated? Micro UA Comment A. baumannii (PCR) Not detected (Not Detect) Mela albicans (PCR) Not detected (Not Detect) C. glabrata (PCR) Not detected (Not Detect) C. krusei (PCR) Not detected (Not Detect) C. parapsilosis (PCR) Not detected (Not Detect) C. tropicalis (PCR) Not detected (Not Detect) SARS-CoV-2 (PCR) (Negative) Enterobacteriac sp PCR Not detected (Not Detect) E. cloacae complex PCR Not detected (Not Detect) Enterococcus sp PCR Not detected (Not Detect) E. coli (PCR) Not detected (Not Detect) H. influenzae (PCR) Not detected (Not Detect) Klebsiella oxytoca PCR Not detected (Not Detect) Klebsiella pneumoniae Not detected (Not Detect) List. monocytogenes PCR Not detected (Not Detect) N. meningitidis (PCR) Not detected (Not Detect) Proteus species (PCR) Not detected (Not Detect) Serratia marcescens PCR Not detected (Not Detect) Staphylococcus sp PCR Not detected (Not Detect) Staph aureus (PCR) Not detected (Not Detect) mecA-Methicil Res Gene Not Reportable Streptococcus sp PCR Not detected (Not Detect) Group A Strep (PCR) Not detected (Not Detect) Strep agalactiae (PCR) Not detected (Not Detect) Strep pneumoniae (PCR) Not detected (Not Detect) P. aeruginosa (PCR) Not detected (Not Detect) Britt/B-Vanco Res Genes Not Reportable KPC-Carbap Res Gene PCR Not Reportable 09/06/21 09/06/21 09/06/21 Range/Units 15:06 15:15 15:30 WBC (4.5-11.0) X10^3/uL RBC (4.5-5.9) X10^6/uL Hgb (13.5-17.5) g/dL Hct (41-53) % MCV (80-100) fL MCH (26-34) PG MCHC (30-36) % RDW (11.6-14.8) % Plt Count (150-400) X10^3/uL Neut % (Auto) (50-75) % Lymph % (Auto) (25-40) % [place] % (Auto) (3-14) % Eos % (Auto) (2-4) % Baso % (Auto) (0-2) % Neut # (Auto) (6834-1034) /uL Lymph # (Auto) (5215-9555) /uL [place] # (Auto) (0-900) /uL Eos # (Auto) (0-450) /uL Baso # (Auto) (0-100) /uL Total Counted Seg Neutrophils % (38-70) % Band Neutrophils % (3-7) % Lymphocytes % (Manual) (25-45) % Monocytes % (Manual) (2-11) % Neutrophils # (Manual) (3619-6068) /uL RBC Morphology PT (10.1-12.7) SECONDS INR (0.9-1.3) APTT (26.4-36.2) SECONDS Sodium (137-145) mmol/L Potassium (3.4-5.1) mmol/L Chloride (98-107) mmol/L Carbon Dioxide (22-32) mmol/L BUN (9-20) mg/dL Creatinine (0.66-1.25) mg/dL Estimated GFR (>60) mL/min BUN/Creatinine Ratio (6-22) Glucose (80-110) mg/dL Lactate (0.7-2.1) mmol/L Calcium (8.4-10.2) mg/dL Total Bilirubin (0.2-1.3) mg/dL AST (17-59) IU/L ALT (<50) IU/L Alkaline Phosphatase (38-126) U/L Total Creatine Kinase (55-170) U/L CK-MB (CK-2) CK-MB (CK-2) Rel Index Troponin I (0.01-0.034) ng/mL Total Protein (6.3-8.2) g/dL Albumin (3.5-5.0) g/dL Globulin (1.7-4.1) g/dL Albumin/Globulin Ratio (1.0-2.8) Lipase (23-300) U/L Procalcitonin (<0.5) ng/mL Urine Color [place] Urine Appearance Clear Urine pH 5.0 (4.5-8.0) Ur Specific [place] 1.010 (1.000-1.035) Urine Protein 1+ H (Negative) Urine Glucose (UA) Trace H (Negative) g/dL Urine Ketones Negative (NEGATIVE) Urine Occult Blood 2+ H (Negative) Urine Nitrate Positive H (Negative) Urine Bilirubin 1+ H (NEGATIVE) Ur Bilirubin Confirm Positive H (Negative) Urine Urobilinogen 0.2 (0.2) E.U./dL Ur Leukocyte Esterase Negative (NEGATIVE) Urine RBC Cancelled 5-10/hpf H Urine WBC Cancelled 1-5/hpf Ur Squamous Epith Cells Cancelled 0-1 /hpf Ur Transition Epith Cell Cancelled Ur Renal Epithelial Cell Cancelled Calcium Oxalate Crystal Cancelled Uric Acid Crystals Cancelled Triple Phos Crystals Cancelled Other Crystals Cancelled Amorphous Sediment Cancelled Urine Bacteria Cancelled Few (2-10) H Hyaline Casts Cancelled 5-10/lpf Granular Casts Cancelled 5-10/lpf RBC Casts Cancelled WBC Casts Cancelled 0-1/lpf Other Casts Cancelled Urine Mucus Cancelled 1+ H Urine Trichomonas Cancelled Urine Yeast Cancelled Urine Sperm Cancelled Ur Culture Indicated? Cancelled Specimen cultured Micro UA Comment Cancelled A. baumannii (PCR) (Not Detect) Mela albicans (PCR) (Not Detect) C. glabrata (PCR) (Not Detect) C. krusei (PCR) (Not Detect) C. parapsilosis (PCR) (Not Detect) C. tropicalis (PCR) (Not Detect) SARS-CoV-2 (PCR) Negative (Negative) Enterobacteriac sp PCR (Not Detect) E. cloacae complex PCR (Not Detect) Enterococcus sp PCR (Not Detect) E. coli (PCR) (Not Detect) H. influenzae (PCR) (Not Detect) Klebsiella oxytoca PCR (Not Detect) Klebsiella pneumoniae (Not Detect) List. monocytogenes PCR (Not Detect) N. meningitidis (PCR) (Not Detect) Proteus species (PCR) (Not Detect) Serratia marcescens PCR (Not Detect) Staphylococcus sp PCR (Not Detect) Staph aureus (PCR) (Not Detect) mecA-Methicil Res Gene Streptococcus sp PCR (Not Detect) Group A Strep (PCR) (Not Detect) Strep agalactiae (PCR) (Not Detect) Strep pneumoniae (PCR) (Not Detect) P. aeruginosa (PCR) (Not Detect) Britt/B-Vanco Res Genes KPC-Carbap Res Gene PCR 09/06/21 09/07/21 09/07/21 Range/Units 17:41 05:53 05:53 WBC 33.6 H* (4.5-11.0) X10^3/uL RBC 3.13 L (4.5-5.9) X10^6/uL Hgb 10.4 L (13.5-17.5) g/dL Hct 31.4 L (41-53) % MCV 100.1 H (80-100) fL MCH 33.2 (26-34) PG MCHC 33.2 (30-36) % RDW 13.8 (11.6-14.8) % Plt Count 179 (150-400) X10^3/uL Neut % (Auto) Not Reportable (50-75) % Lymph % (Auto) Not Reportable (25-40) % Buchanan % (Auto) Not Reportable (3-14) % Eos % (Auto) Not Reportable (2-4) % Baso % (Auto) Not Reportable (0-2) % Neut # (Auto) (9127-9247) /uL Lymph # (Auto) Not Reportable (6262-1485) /uL [place]anan # (Auto) Not Reportable (0-900) /uL Eos # (Auto) (0-450) /uL Baso # (Auto) Not Reportable (0-100) /uL Total Counted 100 Seg Neutrophils % 77.0 H (38-70) % Band Neutrophils % 19.0 H (3-7) % Lymphocytes % (Manual) 2.0 L (25-45) % Monocytes % (Manual) 2.0 (2-11) % Neutrophils # (Manual) 25735 H (5266-9675) /uL RBC Morphology Normal morphology PT (10.1-12.7) SECONDS INR (0.9-1.3) APTT (26.4-36.2) SECONDS Sodium 130 L (137-145) mmol/L Potassium 3.9 (3.4-5.1) mmol/L Chloride 104 (98-107) mmol/L Carbon Dioxide 21 L (22-32) mmol/L BUN 21 H (9-20) mg/dL Creatinine 0.88 (0.66-1.25) mg/dL Estimated GFR > 60 (>60) mL/min BUN/Creatinine Ratio 23.9 H (6-22) Glucose 124 H (80-110) mg/dL Lactate 3.3 H (0.7-2.1) mmol/L Calcium 8.5 (8.4-10.2) mg/dL Total Bilirubin 5.9 H (0.2-1.3) mg/dL AST 626 H (17-59) IU/L ALT 234 H (<50) IU/L Alkaline Phosphatase 381 H (38-126) U/L Total Creatine Kinase (55-170) U/L CK-MB (CK-2) CK-MB (CK-2) Rel Index Troponin I (0.01-0.034) ng/mL Total Protein 6.5 (6.3-8.2) g/dL Albumin 3.0 L (3.5-5.0) g/dL Globulin 3.5 (1.7-4.1) g/dL Albumin/Globulin Ratio 0.9 L (1.0-2.8) Lipase 21 L (23-300) U/L Procalcitonin 23.7 H (<0.5) ng/mL Urine Color Urine Appearance Urine pH (4.5-8.0) Ur Specific [place] (1.000-1.035) Urine Protein (Negative) Urine Glucose (UA) (Negative) g/dL Urine Ketones (NEGATIVE) Urine Occult Blood (Negative) Urine Nitrate (Negative) Urine Bilirubin (NEGATIVE) Ur Bilirubin Confirm (Negative) Urine Urobilinogen (0.2) E.U./dL Ur Leukocyte Esterase (NEGATIVE) Urine RBC Urine WBC Ur Squamous Epith Cells Ur Transition Epith Cell Ur Renal Epithelial Cell Calcium Oxalate Crystal Uric Acid Crystals Triple Phos Crystals Other Crystals Amorphous Sediment Urine Bacteria Hyaline Casts Granular Casts RBC Casts WBC Casts Other Casts Urine Mucus Urine Trichomonas Urine Yeast Urine Sperm Ur Culture Indicated? Micro UA Comment A. baumannii (PCR) (Not Detect) Mela albicans (PCR) (Not Detect) C. glabrata (PCR) (Not Detect) C. krusei (PCR) (Not Detect) C. parapsilosis (PCR) (Not Detect) C. tropicalis (PCR) (Not Detect) SARS-CoV-2 (PCR) (Negative) Enterobacteriac sp PCR (Not Detect) E. cloacae complex PCR (Not Detect) Enterococcus sp PCR (Not Detect) E. coli (PCR) (Not Detect) H. influenzae (PCR) (Not Detect) Klebsiella oxytoca PCR (Not Detect) Klebsiella pneumoniae (Not Detect) List. monocytogenes PCR (Not Detect) N. meningitidis (PCR) (Not Detect) Proteus species (PCR) (Not Detect) Serratia marcescens PCR (Not Detect) Staphylococcus sp PCR (Not Detect) Staph aureus (PCR) (Not Detect) mecA-Methicil Res Gene Streptococcus sp PCR (Not Detect) Group A Strep (PCR) (Not Detect) Strep agalactiae (PCR) (Not Detect) Strep pneumoniae (PCR) (Not Detect) P. aeruginosa (PCR) (Not Detect) Britt/B-Vanco Res Genes KPC-Carbap Res Gene PCR 09/07/21 Range/Units 05:53 WBC (4.5-11.0) X10^3/uL RBC (4.5-5.9) X10^6/uL Hgb (13.5-17.5) g/dL Hct (41-53) % MCV (80-100) fL MCH (26-34) PG MCHC (30-36) % RDW (11.6-14.8) % Plt Count (150-400) X10^3/uL Neut % (Auto) (50-75) % Lymph % (Auto) (25-40) % Buchanan % (Auto) (3-14) % Eos % (Auto) (2-4) % Baso % (Auto) (0-2) % Neut # (Auto) (4500-5593) /uL Lymph # (Auto) (0222-5800) /uL [place] # (Auto) (0-900) /uL Eos # (Auto) (0-450) /uL Baso # (Auto) (0-100) /uL Total Counted Seg Neutrophils % (38-70) % Band Neutrophils % (3-7) % Lymphocytes % (Manual) (25-45) % Monocytes % (Manual) (2-11) % Neutrophils # (Manual) (7130-1147) /uL RBC Morphology PT (10.1-12.7) SECONDS INR (0.9-1.3) APTT (26.4-36.2) SECONDS Sodium (137-145) mmol/L Potassium (3.4-5.1) mmol/L Chloride (98-107) mmol/L Carbon Dioxide (22-32) mmol/L BUN (9-20) mg/dL Creatinine (0.66-1.25) mg/dL Estimated GFR (>60) mL/min BUN/Creatinine Ratio (6-22) Glucose (80-110) mg/dL Lactate 1.8 (0.7-2.1) mmol/L Calcium (8.4-10.2) mg/dL Total Bilirubin (0.2-1.3) mg/dL AST (17-59) IU/L ALT (<50) IU/L Alkaline Phosphatase (38-126) U/L Total Creatine Kinase (55-170) U/L CK-MB (CK-2) CK-MB (CK-2) Rel Index Troponin I (0.01-0.034) ng/mL Total Protein (6.3-8.2) g/dL Albumin (3.5-5.0) g/dL Globulin (1.7-4.1) g/dL Albumin/Globulin Ratio (1.0-2.8) Lipase (23-300) U/L Procalcitonin (<0.5) ng/mL Urine Color Urine Appearance Urine pH (4.5-8.0) Ur Specific [place] (1.000-1.035) Urine Protein (Negative) Urine Glucose (UA) (Negative) g/dL Urine Ketones (NEGATIVE) Urine Occult Blood (Negative) Urine Nitrate (Negative) Urine Bilirubin (NEGATIVE) Ur Bilirubin Confirm (Negative) Urine Urobilinogen (0.2) E.U./dL Ur Leukocyte Esterase (NEGATIVE) Urine RBC Urine WBC Ur Squamous Epith Cells Ur Transition Epith Cell Ur Renal Epithelial Cell Calcium Oxalate Crystal Uric Acid Crystals Triple Phos Crystals Other Crystals Amorphous Sediment Urine Bacteria Hyaline Casts Granular Casts RBC Casts WBC Casts Other Casts Urine Mucus Urine Trichomonas Urine Yeast Urine Sperm Ur Culture Indicated? Micro UA Comment A. baumannii (PCR) (Not Detect) Mela albicans (PCR) (Not Detect) C. glabrata (PCR) (Not Detect) C. krusei (PCR) (Not Detect) C. parapsilosis (PCR) (Not Detect) C. tropicalis (PCR) (Not Detect) SARS-CoV-2 (PCR) (Negative) Enterobacteriac sp PCR (Not Detect) E. cloacae complex PCR (Not Detect) Enterococcus sp PCR (Not Detect) E. coli (PCR) (Not Detect) H. influenzae (PCR) (Not Detect) Klebsiella oxytoca PCR (Not Detect) Klebsiella pneumoniae (Not Detect) List. monocytogenes PCR (Not Detect) N. meningitidis (PCR) (Not Detect) Proteus species (PCR) (Not Detect) Serratia marcescens PCR (Not Detect) Staphylococcus sp PCR (Not Detect) Staph aureus (PCR) (Not Detect) mecA-Methicil Res Gene Streptococcus sp PCR (Not Detect) Group A Strep (PCR) (Not Detect) Strep agalactiae (PCR) (Not Detect) Strep pneumoniae (PCR) (Not Detect) P. aeruginosa (PCR) (Not Detect) Britt/B-Vanco Res Genes KPC-Carbap Res Gene PCR Urine Dip Bedside Urine Glucose Negative Bedside Urine Bilirubin - Negative Bedside Urine Ketone - Negative Urine Specific [place] 1.015 Bedside Urine Occult Blood + Bedside Urine pH 6.0 Bedside Urine Protein + 30 Bedside Urine Urobilinogen - Negative Bedside Urine Nitrite - Negative Bedside Urine Leukocytes - Negative Esterase Imaging Data Chest x-ray: Radiologist's Impression: Signed Patient: Leonid Munoz MR#: [id number] : 1940 Acct:[id number] Age/Sex: 81 / M Date of Service: 09/06/21 Loc: ED Accession Number: [id number] ?? Procedure: XR chest 1V Ordering Provider: Zonia Slater D.O. PROCEDURE:? XR CHEST 1V ? INDICATIONS:? suspected sepsis ? TECHNIQUE:? One view of the chest was acquired.? ? COMPARISON:? [facility], , CHEST 2 VIEW, 01/23/2015, 10:21. ? FINDINGS:? ? Surgical changes and devices:? None.? ? Lungs and pleura:? Lungs are clear.? No pleural effusions or pneumothorax.? ? Mediastinum:? Mediastinal contours appear normal.? Heart size is normal.? ? Bones and chest wall:? No suspicious bony lesions.? Overlying soft tissues appear unremarkable.? ? IMPRESSION:? No evidence acute pulmonary process. ? ? ? Dictated by: Nick Su M.D. on 09/06/2021 at 15:22 ? ? Approved by: Nick Su M.D. on 09/06/2021 at 15:22 ? US - abdomen: Radiologist's Impression: ient: Leonid Munoz MR#: [id number] : 1940 Acct:[id number] Age/Sex: 81 / M Date of Service: 09/06/21 Loc: ED Accession Number: [id number] ?? Procedure: US abdomen limited Ordering Provider: Zonia Slater D.O. PROCEDURE: US ABDOMEN LIMITED ? INDICATIONS:? ruq pain ? TECHNIQUE:? Real-time focused scanning was performed of the abdomen, with image documentation.? ? COMPARISON:? None. ? FINDINGS:? Suboptimal imaging secondary to patient condition.? The liver is normal size and mildly hyperechoic.? There is a prominent focus of air measuring about 4.1 cm in the caudal right hepatic lobe.? Several foci of surrounding gas present in the parenchyma, portal venous gas versus biliary gas.? Mild left lobe biliary dilatation.? Gallbladder was not seen.? Probable stent in the common duct.? No extrahepatic biliary dilatation. ? The visible portion of the proximal pancreas is within normal limits. ? IMPRESSION:? ? 1. Prominent gas containing focus within the hepatic parenchyma suspicious for abscess.? Punctate surrounding air may be portal venous gas.? Pneumobilia is not excluded, particularly given presence of the biliary stent.? ? 2. Mild intrahepatic biliary dilatation. ? 3. Findings called to Dr. Slater at 17:08 hours? ? ? Dictated by: Kiersten Ying M.D. on 09/06/2021 at 17:00 ?? CT scan - abdomen/pelvis: Radiologist's Impression: CT Scan Report Signed Patient: Leonid Munoz MR#: [id number] : 1940 Acct:[id number] Age/Sex: 81 / M Date of Service: 09/06/21 Loc: ED Accession Number: [id number] ?? Procedure: CT abdomen pelvis w con Ordering Provider: Zonia Slater D.O. PROCEDURE:? CT ABDOMEN PELVIS W CON ? INDICATIONS:? elevated bilirubin, stent ? TECHNIQUE:? After the administration of oral and IV contrast, axial sections were acquired from the lung bases to the pubic symphysis.? Coronal and sagittal reformats were performed.? For radiation dose reduction, the following was used:? automated exposure control, adjustment of mA and/or kV according to patient size. ? COMPARISON:? [facility], US, US ABDOMEN LIMITED, 09/06/2021, 15:39.? [facility], CT, IVP (ABD & PEL WWO CONTRAST), 02/24/2015, 10:45.? [facility], CT, CT ABDOMEN PANCREATIC PROTOCOL, 08/15/2017, 11:23. ? FINDINGS:? Image quality:? Excellent.? ? Lung bases:? There are bibasilar atelectasis.? Small hiatal hernia.? ? Heart:? Normal size.? Moderate coronary artery calcification. ? ? ABDOMEN: Liver:? Liver is normal in size.? There is a biliary stent in the common bile duct and left hepatic duct.? There is intrahepatic biliary dilation, most pronounced in the left hepatic lobe and the posterior segment of the right hepatic lobe.? ? A air collection is seen in the inferior aspect of the right hepatic lobe (segment 6) measuring 4.4 cm x 2.7 cm.? There is decreased enhancement in the inferior aspect of the right hepatic lobe with branching air collection, most likely pneumobilia. Gallbladder:? Gallbladder is absent.? ? Biliary ducts:? There is a biliary stent.? There is intrahepatic biliary dilation.? Pancreas:? Unremarkable.? ? Spleen:? Unremarkable.? ? Adrenal Glands:? Unremarkable.? ? Kidneys and Ureters:? Unremarkable.? ? ? Stomach and Bowel:? Stomach, small bowel loops, and colon are normal in caliber.? Fluid-filled small intestine is noted measuring up to 2.5 cm in diameter.? There is a moderate amount of stool in colon. Peritoneum:? No free intraperitoneal fluid or organized fluid collections.? No free air.? ? ? Ventral Wall: ? There is a moderate-sized ventral hernia containing a short segment of small intestine.? Abdominal Nodes:? No retroperitoneal or mesenteric adenopathy by size criteria.? Vessels:? Aorta and inferior vena cava are normal in size.? Moderate atherosclerotic calcifications. ? PELVIS: Pelvic Organs:? Prostate is enlarged.? ? Bladder:? Unremarkable.? ? Pelvic Nodes: No enlarged lymph nodes.? Miscellaneous: No inguinal hernias are seen. ? ? ? Bones:? Degenerative changes are noted.? IMPRESSION:? ? 1. There is a biliary stent.? There is intrahepatic biliary dilation.? The CT finding is concerning for biliary stent malfunction. ? 2. There is a 4.4 x 2.7 cm air collection liver involving the inferior aspect of the segment 6. It is suspicious for an intrahepatic abscess.? There is decreased enhancement in the surrounding liver and branch in air collections likely pneumobilia. ? 3. A moderate-sized ventral hernia containing a short segment of small intestine. ? 4. Small hiatal hernia. ? 5. Fluid-filled small intestine with upper limits normal in caliber.? No transitional point.? The finding is nonspecific. ? The result was discussed with Dr. Slater. ? ? Dictated by: Paulino Hill M.D. on 09/06/2021 at 17:09 ? ? Approved by: Paulino Hill M.D. on 09/06/2021 at 17:23 ? ECG Data Interpretation: Sinus rhythm rate 108 MS no 80 QRS 92 before [address] changes no priors to compare MDM Narrative Medical decision making narrative: Patient overall presents confused tachycardic with fever of 103. He is found to meet sepsis criteria with leukocytosis of 13. He does have a UTI however he is found to have elevated bilirubin of 5.6 previously on 08/02/2021 he had a normal bilirubin with elevated liver enzymes. Liver enzymes were also elevated today however the bilirubin is new. Patient does not have any right upper quadrant pain. Ultrasound he shows limited results concerning for possible occluded biliary stent. CT also concerning for possible occluded biliary stent and also liver abscess is found. 7:17pm [facility], infectious disease doctor has reviewed CT. He agrees with current antibiotic treatment of Zosyn Flagyl and vancomycin. Questions if this is chronic. Unfortunately we do not have any [facility] records. States that patient does need in [place] are drain. Also questions if patient has traveled to [place] recently and maybe an amebea. The 1st place a call to transfer was [facility] unfortunately they do not have any bed availability. Further facilities were called including [facility], [facility]. Unfortunately no beds available. [facility] did call but they do not have GI available for stent evaluation. Patient's blood pressure has decreased some in the emergency department continue to get sepsis fluids. Patient remains slightly tachycardic although that is improving. Fever is also improving. Patient will need to be transferred to a place where he can have interventional radiology drain liver abscess and GI to evaluate stent Signed out to Dr. Lozano <Nelson Lozano, - Last Filed: 09/07/21 18:04> Lab Data Labs: Lab Results 09/06/21 09/06/21 09/06/21 Range/Units 14:50 14:50 14:50 WBC 23.3 H (4.5-11.0) X10^3/uL RBC 3.66 L (4.5-5.9) X10^6/uL Hgb 12.3 L (13.5-17.5) g/dL Hct 36.3 L (41-53) % MCV 99.3 (80-100) fL MCH 33.7 (26-34) PG MCHC 33.9 (30-36) % RDW 13.7 (11.6-14.8) % Plt Count 219 (150-400) X10^3/uL Neut % (Auto) 97.4 H (50-75) % Lymph % (Auto) 0.9 L (25-40) % Buchanan % (Auto) 1.0 L (3-14) % Eos % (Auto) 0.0 L (2-4) % Baso % (Auto) 0.7 (0-2) % Neut # (Auto) 61344 H (1196-7126) /uL Lymph # (Auto) 200 L (8806-9439) /uL [place]anan # (Auto) 200 (0-900) /uL Eos # (Auto) 0 (0-450) /uL Baso # (Auto) 200 H (0-100) /uL Total Counted Seg Neutrophils % (38-70) % Band Neutrophils % (3-7) % Lymphocytes % (Manual) (25-45) % Monocytes % (Manual) (2-11) % Neutrophils # (Manual) (6619-9465) /uL RBC Morphology PT (10.1-12.7) SECONDS INR (0.9-1.3) APTT (26.4-36.2) SECONDS Sodium 132 L (137-145) mmol/L Potassium 3.9 (3.4-5.1) mmol/L Chloride 98 (98-107) mmol/L Carbon Dioxide 21 L (22-32) mmol/L BUN 16 (9-20) mg/dL Creatinine 1.22 (0.66-1.25) mg/dL Estimated GFR 59 L (>60) mL/min BUN/Creatinine Ratio 13.1 (6-22) Glucose 133 H (80-110) mg/dL Lactate 3.3 H (0.7-2.1) mmol/L Calcium 9.6 (8.4-10.2) mg/dL Total Bilirubin 5.6 H (0.2-1.3) mg/dL AST 552 H (17-59) IU/L ALT 150 H (<50) IU/L Alkaline Phosphatase 719 H (38-126) U/L Total Creatine Kinase (55-170) U/L CK-MB (CK-2) CK-MB (CK-2) Rel Index Troponin I (0.01-0.034) ng/mL Total Protein 8.2 (6.3-8.2) g/dL Albumin 4.0 (3.5-5.0) g/dL Globulin 4.2 H (1.7-4.1) g/dL Albumin/Globulin Ratio 1.0 (1.0-2.8) Lipase 39 (23-300) U/L Procalcitonin 10.2 H (<0.5) ng/mL Urine Color Urine Appearance Urine pH (4.5-8.0) Ur Specific [place] (1.000-1.035) Urine Protein (Negative) Urine Glucose (UA) (Negative) g/dL Urine Ketones (NEGATIVE) Urine Occult Blood (Negative) Urine Nitrate (Negative) Urine Bilirubin (NEGATIVE) Ur Bilirubin Confirm (Negative) Urine Urobilinogen (0.2) E.U./dL Ur Leukocyte Esterase (NEGATIVE) Urine RBC Urine WBC Ur Squamous Epith Cells Ur Transition Epith Cell Ur Renal Epithelial Cell Calcium Oxalate Crystal Uric Acid Crystals Triple Phos Crystals Other Crystals Amorphous Sediment Urine Bacteria Hyaline Casts Granular Casts RBC Casts WBC Casts Other Casts Urine Mucus Urine Trichomonas Urine Yeast Urine Sperm Ur Culture Indicated? Micro UA Comment A. baumannii (PCR) (Not Detect) Mela albicans (PCR) (Not Detect) C. glabrata (PCR) (Not Detect) C. krusei (PCR) (Not Detect) C. parapsilosis (PCR) (Not Detect) C. tropicalis (PCR) (Not Detect) SARS-CoV-2 (PCR) (Negative) Enterobacteriac sp PCR (Not Detect) E. cloacae complex PCR (Not Detect) Enterococcus sp PCR (Not Detect) E. coli (PCR) (Not Detect) H. influenzae (PCR) (Not Detect) Klebsiella oxytoca PCR (Not Detect) Klebsiella pneumoniae (Not Detect) List. monocytogenes PCR (Not Detect) N. meningitidis (PCR) (Not Detect) Proteus species (PCR) (Not Detect) Serratia marcescens PCR (Not Detect) Staphylococcus sp PCR (Not Detect) Staph aureus (PCR) (Not Detect) mecA-Methicil Res Gene Streptococcus sp PCR (Not Detect) Group A Strep (PCR) (Not Detect) Strep agalactiae (PCR) (Not Detect) Strep pneumoniae (PCR) (Not Detect) P. aeruginosa (PCR) (Not Detect) Britt/B-Vanco Res Genes KPC-Carbap Res Gene PCR 09/06/21 09/06/21 09/06/21 Range/Units 14:50 14:50 14:50 WBC (4.5-11.0) X10^3/uL RBC (4.5-5.9) X10^6/uL Hgb (13.5-17.5) g/dL Hct (41-53) % MCV (80-100) fL MCH (26-34) PG MCHC (30-36) % RDW (11.6-14.8) % Plt Count (150-400) X10^3/uL Neut % (Auto) (50-75) % Lymph % (Auto) (25-40) % Buchanan % (Auto) (3-14) % Eos % (Auto) (2-4) % Baso % (Auto) (0-2) % Neut # (Auto) (9550-5863) /uL Lymph # (Auto) (4555-3233) /uL [place]anan # (Auto) (0-900) /uL Eos # (Auto) (0-450) /uL Baso # (Auto) (0-100) /uL Total Counted Seg Neutrophils % (38-70) % Band Neutrophils % (3-7) % Lymphocytes % (Manual) (25-45) % Monocytes % (Manual) (2-11) % Neutrophils # (Manual) (7876-9195) /uL RBC Morphology PT 13.7 H (10.1-12.7) SECONDS INR 1.2 (0.9-1.3) APTT 33 (26.4-36.2) SECONDS Sodium (137-145) mmol/L Potassium (3.4-5.1) mmol/L Chloride (98-107) mmol/L Carbon Dioxide (22-32) mmol/L BUN (9-20) mg/dL Creatinine (0.66-1.25) mg/dL Estimated GFR (>60) mL/min BUN/Creatinine Ratio (6-22) Glucose (80-110) mg/dL Lactate (0.7-2.1) mmol/L Calcium (8.4-10.2) mg/dL Total Bilirubin (0.2-1.3) mg/dL AST (17-59) IU/L ALT (<50) IU/L Alkaline Phosphatase (38-126) U/L Total Creatine Kinase 62 (55-170) U/L CK-MB (CK-2) TNP CK-MB (CK-2) Rel Index TNP Troponin I < 0.012 (0.01-0.034) ng/mL Total Protein (6.3-8.2) g/dL Albumin (3.5-5.0) g/dL Globulin (1.7-4.1) g/dL Albumin/Globulin Ratio (1.0-2.8) Lipase (23-300) U/L Procalcitonin (<0.5) ng/mL Urine Color Urine Appearance Urine pH (4.5-8.0) Ur Specific [place] (1.000-1.035) Urine Protein (Negative) Urine Glucose (UA) (Negative) g/dL Urine Ketones (NEGATIVE) Urine Occult Blood (Negative) Urine Nitrate (Negative) Urine Bilirubin (NEGATIVE) Ur Bilirubin Confirm (Negative) Urine Urobilinogen (0.2) E.U./dL Ur Leukocyte Esterase (NEGATIVE) Urine RBC Urine WBC Ur Squamous Epith Cells Ur Transition Epith Cell Ur Renal Epithelial Cell Calcium Oxalate Crystal Uric Acid Crystals Triple Phos Crystals Other Crystals Amorphous Sediment Urine Bacteria Hyaline Casts Granular Casts RBC Casts WBC Casts Other Casts Urine Mucus Urine Trichomonas Urine Yeast Urine Sperm Ur Culture Indicated? Micro UA Comment A. baumannii (PCR) Not detected (Not Detect) Mela albicans (PCR) Not detected (Not Detect) C. glabrata (PCR) Not detected (Not Detect) C. krusei (PCR) Not detected (Not Detect) C. parapsilosis (PCR) Not detected (Not Detect) C. tropicalis (PCR) Not detected (Not Detect) SARS-CoV-2 (PCR) (Negative) Enterobacteriac sp PCR Not detected (Not Detect) E. cloacae complex PCR Not detected (Not Detect) Enterococcus sp PCR Not detected (Not Detect) E. coli (PCR) Not detected (Not Detect) H. influenzae (PCR) Not detected (Not Detect) Klebsiella oxytoca PCR Not detected (Not Detect) Klebsiella pneumoniae Not detected (Not Detect) List. monocytogenes PCR Not detected (Not Detect) N. meningitidis (PCR) Not detected (Not Detect) Proteus species (PCR) Not detected (Not Detect) Serratia marcescens PCR Not detected (Not Detect) Staphylococcus sp PCR Not detected (Not Detect) Staph aureus (PCR) Not detected (Not Detect) mecA-Methicil Res Gene Not Reportable Streptococcus sp PCR Not detected (Not Detect) Group A Strep (PCR) Not detected (Not Detect) Strep agalactiae (PCR) Not detected (Not Detect) Strep pneumoniae (PCR) Not detected (Not Detect) P. aeruginosa (PCR) Not detected (Not Detect) Britt/B-Vanco Res Genes Not Reportable KPC-Carbap Res Gene PCR Not Reportable 09/06/21 09/06/21 09/06/21 Range/Units 15:06 15:15 15:30 WBC (4.5-11.0) X10^3/uL RBC (4.5-5.9) X10^6/uL Hgb (13.5-17.5) g/dL Hct (41-53) % MCV (80-100) fL MCH (26-34) PG MCHC (30-36) % RDW (11.6-14.8) % Plt Count (150-400) X10^3/uL Neut % (Auto) (50-75) % Lymph % (Auto) (25-40) % [place] % (Auto) (3-14) % Eos % (Auto) (2-4) % Baso % (Auto) (0-2) % Neut # (Auto) (2942-6740) /uL Lymph # (Auto) (4608-4269) /uL [place] # (Auto) (0-900) /uL Eos # (Auto) (0-450) /uL Baso # (Auto) (0-100) /uL Total Counted Seg Neutrophils % (38-70) % Band Neutrophils % (3-7) % Lymphocytes % (Manual) (25-45) % Monocytes % (Manual) (2-11) % Neutrophils # (Manual) (0296-4666) /uL RBC Morphology PT (10.1-12.7) SECONDS INR (0.9-1.3) APTT (26.4-36.2) SECONDS Sodium (137-145) mmol/L Potassium (3.4-5.1) mmol/L Chloride (98-107) mmol/L Carbon Dioxide (22-32) mmol/L BUN (9-20) mg/dL Creatinine (0.66-1.25) mg/dL Estimated GFR (>60) mL/min BUN/Creatinine Ratio (6-22) Glucose (80-110) mg/dL Lactate (0.7-2.1) mmol/L Calcium (8.4-10.2) mg/dL Total Bilirubin (0.2-1.3) mg/dL AST (17-59) IU/L ALT (<50) IU/L Alkaline Phosphatase (38-126) U/L Total Creatine Kinase (55-170) U/L CK-MB (CK-2) CK-MB (CK-2) Rel Index Troponin I (0.01-0.034) ng/mL Total Protein (6.3-8.2) g/dL Albumin (3.5-5.0) g/dL Globulin (1.7-4.1) g/dL Albumin/Globulin Ratio (1.0-2.8) Lipase (23-300) U/L Procalcitonin (<0.5) ng/mL Urine Color [place] Urine Appearance Clear Urine pH 5.0 (4.5-8.0) Ur Specific [place] 1.010 (1.000-1.035) Urine Protein 1+ H (Negative) Urine Glucose (UA) Trace H (Negative) g/dL Urine Ketones Negative (NEGATIVE) Urine Occult Blood 2+ H (Negative) Urine Nitrate Positive H (Negative) Urine Bilirubin 1+ H (NEGATIVE) Ur Bilirubin Confirm Positive H (Negative) Urine Urobilinogen 0.2 (0.2) E.U./dL Ur Leukocyte Esterase Negative (NEGATIVE) Urine RBC Cancelled 5-10/hpf H Urine WBC Cancelled 1-5/hpf Ur Squamous Epith Cells Cancelled 0-1 /hpf Ur Transition Epith Cell Cancelled Ur Renal Epithelial Cell Cancelled Calcium Oxalate Crystal Cancelled Uric Acid Crystals Cancelled Triple Phos Crystals Cancelled Other Crystals Cancelled Amorphous Sediment Cancelled Urine Bacteria Cancelled Few (2-10) H Hyaline Casts Cancelled 5-10/lpf Granular Casts Cancelled 5-10/lpf RBC Casts Cancelled WBC Casts Cancelled 0-1/lpf Other Casts Cancelled Urine Mucus Cancelled 1+ H Urine Trichomonas Cancelled Urine Yeast Cancelled Urine Sperm Cancelled Ur Culture Indicated? Cancelled Specimen cultured Micro UA Comment Cancelled A. baumannii (PCR) (Not Detect) Mela albicans (PCR) (Not Detect) C. glabrata (PCR) (Not Detect) C. krusei (PCR) (Not Detect) C. parapsilosis (PCR) (Not Detect) C. tropicalis (PCR) (Not Detect) SARS-CoV-2 (PCR) Negative (Negative) Enterobacteriac sp PCR (Not Detect) E. cloacae complex PCR (Not Detect) Enterococcus sp PCR (Not Detect) E. coli (PCR) (Not Detect) H. influenzae (PCR) (Not Detect) Klebsiella oxytoca PCR (Not Detect) Klebsiella pneumoniae (Not Detect) List. monocytogenes PCR (Not Detect) N. meningitidis (PCR) (Not Detect) Proteus species (PCR) (Not Detect) Serratia marcescens PCR (Not Detect) Staphylococcus sp PCR (Not Detect) Staph aureus (PCR) (Not Detect) mecA-Methicil Res Gene Streptococcus sp PCR (Not Detect) Group A Strep (PCR) (Not Detect) Strep agalactiae (PCR) (Not Detect) Strep pneumoniae (PCR) (Not Detect) P. aeruginosa (PCR) (Not Detect) Britt/B-Vanco Res Genes KPC-Carbap Res Gene PCR 09/06/21 09/07/21 09/07/21 Range/Units 17:41 05:53 05:53 WBC 33.6 H* (4.5-11.0) X10^3/uL RBC 3.13 L (4.5-5.9) X10^6/uL Hgb 10.4 L (13.5-17.5) g/dL Hct 31.4 L (41-53) % MCV 100.1 H (80-100) fL MCH 33.2 (26-34) PG MCHC 33.2 (30-36) % RDW 13.8 (11.6-14.8) % Plt Count 179 (150-400) X10^3/uL Neut % (Auto) Not Reportable (50-75) % Lymph % (Auto) Not Reportable (25-40) % [place] % (Auto) Not Reportable (3-14) % Eos % (Auto) Not Reportable (2-4) % Baso % (Auto) Not Reportable (0-2) % Neut # (Auto) (3608-9892) /uL Lymph # (Auto) Not Reportable (8656-8067) /uL [place] # (Auto) Not Reportable (0-900) /uL Eos # (Auto) (0-450) /uL Baso # (Auto) Not Reportable (0-100) /uL Total Counted 100 Seg Neutrophils % 77.0 H (38-70) % Band Neutrophils % 19.0 H (3-7) % Lymphocytes % (Manual) 2.0 L (25-45) % Monocytes % (Manual) 2.0 (2-11) % Neutrophils # (Manual) 45047 H (0862-5249) /uL RBC Morphology Normal morphology PT (10.1-12.7) SECONDS INR (0.9-1.3) APTT (26.4-36.2) SECONDS Sodium 130 L (137-145) mmol/L Potassium 3.9 (3.4-5.1) mmol/L Chloride 104 (98-107) mmol/L Carbon Dioxide 21 L (22-32) mmol/L BUN 21 H (9-20) mg/dL Creatinine 0.88 (0.66-1.25) mg/dL Estimated GFR > 60 (>60) mL/min BUN/Creatinine Ratio 23.9 H (6-22) Glucose 124 H (80-110) mg/dL Lactate 3.3 H (0.7-2.1) mmol/L Calcium 8.5 (8.4-10.2) mg/dL Total Bilirubin 5.9 H (0.2-1.3) mg/dL AST 626 H (17-59) IU/L ALT 234 H (<50) IU/L Alkaline Phosphatase 381 H (38-126) U/L Total Creatine Kinase (55-170) U/L CK-MB (CK-2) CK-MB (CK-2) Rel Index Troponin I (0.01-0.034) ng/mL Total Protein 6.5 (6.3-8.2) g/dL Albumin 3.0 L (3.5-5.0) g/dL Globulin 3.5 (1.7-4.1) g/dL Albumin/Globulin Ratio 0.9 L (1.0-2.8) Lipase 21 L (23-300) U/L Procalcitonin 23.7 H (<0.5) ng/mL Urine Color Urine Appearance Urine pH (4.5-8.0) Ur Specific [place] (1.000-1.035) Urine Protein (Negative) Urine Glucose (UA) (Negative) g/dL Urine Ketones (NEGATIVE) Urine Occult Blood (Negative) Urine Nitrate (Negative) Urine Bilirubin (NEGATIVE) Ur Bilirubin Confirm (Negative) Urine Urobilinogen (0.2) E.U./dL Ur Leukocyte Esterase (NEGATIVE) Urine RBC Urine WBC Ur Squamous Epith Cells Ur Transition Epith Cell Ur Renal Epithelial Cell Calcium Oxalate Crystal Uric Acid Crystals Triple Phos Crystals Other Crystals Amorphous Sediment Urine Bacteria Hyaline Casts Granular Casts RBC Casts WBC Casts Other Casts Urine Mucus Urine Trichomonas Urine Yeast Urine Sperm Ur Culture Indicated? Micro UA Comment A. baumannii (PCR) (Not Detect) Mela albicans (PCR) (Not Detect) C. glabrata (PCR) (Not Detect) C. krusei (PCR) (Not Detect) C. parapsilosis (PCR) (Not Detect) C. tropicalis (PCR) (Not Detect) SARS-CoV-2 (PCR) (Negative) Enterobacteriac sp PCR (Not Detect) E. cloacae complex PCR (Not Detect) Enterococcus sp PCR (Not Detect) E. coli (PCR) (Not Detect) H. influenzae (PCR) (Not Detect) Klebsiella oxytoca PCR (Not Detect) Klebsiella pneumoniae (Not Detect) List. monocytogenes PCR (Not Detect) N. meningitidis (PCR) (Not Detect) Proteus species (PCR) (Not Detect) Serratia marcescens PCR (Not Detect) Staphylococcus sp PCR (Not Detect) Staph aureus (PCR) (Not Detect) mecA-Methicil Res Gene Streptococcus sp PCR (Not Detect) Group A Strep (PCR) (Not Detect) Strep agalactiae (PCR) (Not Detect) Strep pneumoniae (PCR) (Not Detect) P. aeruginosa (PCR) (Not Detect) Britt/B-Vanco Res Genes KPC-Carbap Res Gene PCR 09/07/21 Range/Units 05:53 WBC (4.5-11.0) X10^3/uL RBC (4.5-5.9) X10^6/uL Hgb (13.5-17.5) g/dL Hct (41-53) % MCV (80-100) fL MCH (26-34) PG MCHC (30-36) % RDW (11.6-14.8) % Plt Count (150-400) X10^3/uL Neut % (Auto) (50-75) % Lymph % (Auto) (25-40) % [place]anan % (Auto) (3-14) % Eos % (Auto) (2-4) % Baso % (Auto) (0-2) % Neut # (Auto) (7053-7026) /uL Lymph # (Auto) (9105-7140) /uL [place] # (Auto) (0-900) /uL Eos # (Auto) (0-450) /uL Baso # (Auto) (0-100) /uL Total Counted Seg Neutrophils % (38-70) % Band Neutrophils % (3-7) % Lymphocytes % (Manual) (25-45) % Monocytes % (Manual) (2-11) % Neutrophils # (Manual) (1750-2239) /uL RBC Morphology PT (10.1-12.7) SECONDS INR (0.9-1.3) APTT (26.4-36.2) SECONDS Sodium (137-145) mmol/L Potassium (3.4-5.1) mmol/L Chloride (98-107) mmol/L Carbon Dioxide (22-32) mmol/L BUN (9-20) mg/dL Creatinine (0.66-1.25) mg/dL Estimated GFR (>60) mL/min BUN/Creatinine Ratio (6-22) Glucose (80-110) mg/dL Lactate 1.8 (0.7-2.1) mmol/L Calcium (8.4-10.2) mg/dL Total Bilirubin (0.2-1.3) mg/dL AST (17-59) IU/L ALT (<50) IU/L Alkaline Phosphatase (38-126) U/L Total Creatine Kinase (55-170) U/L CK-MB (CK-2) CK-MB (CK-2) Rel Index Troponin I (0.01-0.034) ng/mL Total Protein (6.3-8.2) g/dL Albumin (3.5-5.0) g/dL Globulin (1.7-4.1) g/dL Albumin/Globulin Ratio (1.0-2.8) Lipase (23-300) U/L Procalcitonin (<0.5) ng/mL Urine Color Urine Appearance Urine pH (4.5-8.0) Ur Specific [place] (1.000-1.035) Urine Protein (Negative) Urine Glucose (UA) (Negative) g/dL Urine Ketones (NEGATIVE) Urine Occult Blood (Negative) Urine Nitrate (Negative) Urine Bilirubin (NEGATIVE) Ur Bilirubin Confirm (Negative) Urine Urobilinogen (0.2) E.U./dL Ur Leukocyte Esterase (NEGATIVE) Urine RBC Urine WBC Ur Squamous Epith Cells Ur Transition Epith Cell Ur Renal Epithelial Cell Calcium Oxalate Crystal Uric Acid Crystals Triple Phos Crystals Other Crystals Amorphous Sediment Urine Bacteria Hyaline Casts Granular Casts RBC Casts WBC Casts Other Casts Urine Mucus Urine Trichomonas Urine Yeast Urine Sperm Ur Culture Indicated? Micro UA Comment A. baumannii (PCR) (Not Detect) Mela albicans (PCR) (Not Detect) C. glabrata (PCR) (Not Detect) C. krusei (PCR) (Not Detect) C. parapsilosis (PCR) (Not Detect) C. tropicalis (PCR) (Not Detect) SARS-CoV-2 (PCR) (Negative) Enterobacteriac sp PCR (Not Detect) E. cloacae complex PCR (Not Detect) Enterococcus sp PCR (Not Detect) E. coli (PCR) (Not Detect) H. influenzae (PCR) (Not Detect) Klebsiella oxytoca PCR (Not Detect) Klebsiella pneumoniae (Not Detect) List. monocytogenes PCR (Not Detect) N. meningitidis (PCR) (Not Detect) Proteus species (PCR) (Not Detect) Serratia marcescens PCR (Not Detect) Staphylococcus sp PCR (Not Detect) Staph aureus (PCR) (Not Detect) mecA-Methicil Res Gene Streptococcus sp PCR (Not Detect) Group A Strep (PCR) (Not Detect) Strep agalactiae (PCR) (Not Detect) Strep pneumoniae (PCR) (Not Detect) P. aeruginosa (PCR) (Not Detect) Britt/B-Vanco Res Genes KPC-Carbap Res Gene PCR Urine Dip Bedside Urine Glucose Negative Bedside Urine Bilirubin - Negative Bedside Urine Ketone - Negative Urine Specific [place] 1.015 Bedside Urine Occult Blood + Bedside Urine pH 6.0 Bedside Urine Protein + 30 Bedside Urine Urobilinogen - Negative Bedside Urine Nitrite - Negative Bedside Urine Leukocytes - Negative Esterase MDM Narrative Medical decision making narrative: Patient overall presents confused tachycardic with fever of 103. He is found to meet sepsis criteria with leukocytosis of 13. He does have a UTI however he is found to have elevated bilirubin of 5.6 previously on 08/02/2021 he had a normal bilirubin with elevated liver enzymes. Liver enzymes were also elevated today however the bilirubin is new. Patient does not have any right upper quadrant pain. Ultrasound he shows limited results concerning for possible occluded biliary stent. CT also concerning for possible occluded biliary stent and also liver abscess is found. 7:17pm Jose David, infectious disease doctor has reviewed CT. He agrees with current antibiotic treatment of Zosyn Flagyl and vancomycin. Questions if this is chronic. Unfortunately we do not have any [facility] records. States that patient does need in [place] are drain. Also questions if patient has traveled to [place] recently and maybe an amebea. The 1st place a call to transfer was [facility] unfortunately they do not have any bed availability. Further facilities were called including [facility], [facility]. Unfortunately no beds available. [facility] did call but they do not have GI available for stent evaluation. Patient's blood pressure has decreased some in the emergency department continue to get sepsis fluids. Patient remains slightly tachycardic although that is improving. Fever is also improving. Patient will need to be transferred to a place where he can have interventional radiology drain liver abscess and GI to evaluate stent Signed out to Dr. Marta lozano: I did receive turned over. I have reviewed patient's history and physical in labs and any radiologic studies performed up to this point. We were able to obtain records from [facility]. Which is when her patient has been receiving his care. 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 Left hepatic duct stent placed on 07/20/2019 to. Also concern for adenocarcinoma versus high-grade dysplasia. He is currently only receiving frequent endoscopic management of his symptoms. There was a planned that the patient would return in 3 months for a stent exchange. I evaluated the patient. He was alert and oriented to person and place and year. He stated that he went to his primary doctor earlier today for chills and generally not feeling very well. He did admit that he was very confused but now states that he feels much better. He has received antibiotics and fluid. CT scan concerning for blockage of the stent and also a hepatic abscess. He also has a nitrite positive urine. Attempted to contact multiple places for transfers the patient is most likely going to need Interventional Radiology and Gastroenterology. Patient would most benefit for transfer back to [facility] secondary to continuity of care. We did receive a call from [facility] and they do have bed availability however I re-contacted [facility]. They are hopeful that they will have a bed available within the next 12-24 hours and given his extensive history, care already established at this facility and his clinical improvement after fluids and antibiotics that keeping him here in this emergency department until a bed becomes available would be most beneficial to the patient. Care turned over to Dr. Samuesl at change of shift to follow up and disposition. I did discuss the case with Dr. velasquez with GI at [facility] who agrees that patient should be transferred for ERCP is he is also concerned based on his history and physical and labs and CT scan findings that he will most likely need a new stent placed. Patient's blood pressures have had a systolic in the 80s to 90s however his mean arterial pressure has been in the upper 60s and low 70s. We will continue to monitor. Repeat labs ordered. Review of his repeat labs shows a worsening leukocytosis. Normalization of his lactate. Slightly worsening of his bilirubin and LFTs. He reports that he feels much better. He is afebrile. Not tachycardic. Has had systolic blood pressures in the 80's-90's once again his mean arterial pressures have been greater than 65 and also has had multiple an arterial pressures greater than 70. Patient has received 30 cc/kilogram of IV fluids and is on maintenance fluids currently. Will hold on pressors for now given his labs and exam. Care turned over to Dr. Samuels. <Sam Samuels, - Last Filed: 09/07/21 11:58> Lab Data Labs: Lab Results 09/06/21 09/06/21 09/06/21 Range/Units 14:50 14:50 14:50 WBC 23.3 H (4.5-11.0) X10^3/uL RBC 3.66 L (4.5-5.9) X10^6/uL Hgb 12.3 L (13.5-17.5) g/dL Hct 36.3 L (41-53) % MCV 99.3 (80-100) fL MCH 33.7 (26-34) PG MCHC 33.9 (30-36) % RDW 13.7 (11.6-14.8) % Plt Count 219 (150-400) X10^3/uL Neut % (Auto) 97.4 H (50-75) % Lymph % (Auto) 0.9 L (25-40) % [place]anan % (Auto) 1.0 L (3-14) % Eos % (Auto) 0.0 L (2-4) % Baso % (Auto) 0.7 (0-2) % Neut # (Auto) 08663 H (8347-5040) /uL Lymph # (Auto) 200 L (2443-6658) /uL [place]anan # (Auto) 200 (0-900) /uL Eos # (Auto) 0 (0-450) /uL Baso # (Auto) 200 H (0-100) /uL Total Counted Seg Neutrophils % (38-70) % Band Neutrophils % (3-7) % Lymphocytes % (Manual) (25-45) % Monocytes % (Manual) (2-11) % Neutrophils # (Manual) (4983-5340) /uL RBC Morphology PT (10.1-12.7) SECONDS INR (0.9-1.3) APTT (26.4-36.2) SECONDS Sodium 132 L (137-145) mmol/L Potassium 3.9 (3.4-5.1) mmol/L Chloride 98 (98-107) mmol/L Carbon Dioxide 21 L (22-32) mmol/L BUN 16 (9-20) mg/dL Creatinine 1.22 (0.66-1.25) mg/dL Estimated GFR 59 L (>60) mL/min BUN/Creatinine Ratio 13.1 (6-22) Glucose 133 H (80-110) mg/dL Lactate 3.3 H (0.7-2.1) mmol/L Calcium 9.6 (8.4-10.2) mg/dL Total Bilirubin 5.6 H (0.2-1.3) mg/dL AST 552 H (17-59) IU/L ALT 150 H (<50) IU/L Alkaline Phosphatase 719 H (38-126) U/L Total Creatine Kinase (55-170) U/L CK-MB (CK-2) CK-MB (CK-2) Rel Index Troponin I (0.01-0.034) ng/mL Total Protein 8.2 (6.3-8.2) g/dL Albumin 4.0 (3.5-5.0) g/dL Globulin 4.2 H (1.7-4.1) g/dL Albumin/Globulin Ratio 1.0 (1.0-2.8) Lipase 39 (23-300) U/L Procalcitonin 10.2 H (<0.5) ng/mL Urine Color Urine Appearance Urine pH (4.5-8.0) Ur Specific [place] (1.000-1.035) Urine Protein (Negative) Urine Glucose (UA) (Negative) g/dL Urine Ketones (NEGATIVE) Urine Occult Blood (Negative) Urine Nitrate (Negative) Urine Bilirubin (NEGATIVE) Ur Bilirubin Confirm (Negative) Urine Urobilinogen (0.2) E.U./dL Ur Leukocyte Esterase (NEGATIVE) Urine RBC Urine WBC Ur Squamous Epith Cells Ur Transition Epith Cell Ur Renal Epithelial Cell Calcium Oxalate Crystal Uric Acid Crystals Triple Phos Crystals Other Crystals Amorphous Sediment Urine Bacteria Hyaline Casts Granular Casts RBC Casts WBC Casts Other Casts Urine Mucus Urine Trichomonas Urine Yeast Urine Sperm Ur Culture Indicated? Micro UA Comment A. baumannii (PCR) (Not Detect) Mela albicans (PCR) (Not Detect) C. glabrata (PCR) (Not Detect) C. krusei (PCR) (Not Detect) C. parapsilosis (PCR) (Not Detect) C. tropicalis (PCR) (Not Detect) SARS-CoV-2 (PCR) (Negative) Enterobacteriac sp PCR (Not Detect) E. cloacae complex PCR (Not Detect) Enterococcus sp PCR (Not Detect) E. coli (PCR) (Not Detect) H. influenzae (PCR) (Not Detect) Klebsiella oxytoca PCR (Not Detect) Klebsiella pneumoniae (Not Detect) List. monocytogenes PCR (Not Detect) N. meningitidis (PCR) (Not Detect) Proteus species (PCR) (Not Detect) Serratia marcescens PCR (Not Detect) Staphylococcus sp PCR (Not Detect) Staph aureus (PCR) (Not Detect) mecA-Methicil Res Gene Streptococcus sp PCR (Not Detect) Group A Strep (PCR) (Not Detect) Strep agalactiae (PCR) (Not Detect) Strep pneumoniae (PCR) (Not Detect) P. aeruginosa (PCR) (Not Detect) Britt/B-Vanco Res Genes KPC-Carbap Res Gene PCR 09/06/21 09/06/21 09/06/21 Range/Units 14:50 14:50 14:50 WBC (4.5-11.0) X10^3/uL RBC (4.5-5.9) X10^6/uL Hgb (13.5-17.5) g/dL Hct (41-53) % MCV (80-100) fL MCH (26-34) PG MCHC (30-36) % RDW (11.6-14.8) % Plt Count (150-400) X10^3/uL Neut % (Auto) (50-75) % Lymph % (Auto) (25-40) % [place] % (Auto) (3-14) % Eos % (Auto) (2-4) % Baso % (Auto) (0-2) % Neut # (Auto) (2377-9243) /uL Lymph # (Auto) (3836-5643) /uL [place] # (Auto) (0-900) /uL Eos # (Auto) (0-450) /uL Baso # (Auto) (0-100) /uL Total Counted Seg Neutrophils % (38-70) % Band Neutrophils % (3-7) % Lymphocytes % (Manual) (25-45) % Monocytes % (Manual) (2-11) % Neutrophils # (Manual) (1380-4477) /uL RBC Morphology PT 13.7 H (10.1-12.7) SECONDS INR 1.2 (0.9-1.3) APTT 33 (26.4-36.2) SECONDS Sodium (137-145) mmol/L Potassium (3.4-5.1) mmol/L Chloride (98-107) mmol/L Carbon Dioxide (22-32) mmol/L BUN (9-20) mg/dL Creatinine (0.66-1.25) mg/dL Estimated GFR (>60) mL/min BUN/Creatinine Ratio (6-22) Glucose (80-110) mg/dL Lactate (0.7-2.1) mmol/L Calcium (8.4-10.2) mg/dL Total Bilirubin (0.2-1.3) mg/dL AST (17-59) IU/L ALT (<50) IU/L Alkaline Phosphatase (38-126) U/L Total Creatine Kinase 62 (55-170) U/L CK-MB (CK-2) TNP CK-MB (CK-2) Rel Index TNP Troponin I < 0.012 (0.01-0.034) ng/mL Total Protein (6.3-8.2) g/dL Albumin (3.5-5.0) g/dL Globulin (1.7-4.1) g/dL Albumin/Globulin Ratio (1.0-2.8) Lipase (23-300) U/L Procalcitonin (<0.5) ng/mL Urine Color Urine Appearance Urine pH (4.5-8.0) Ur Specific [place] (1.000-1.035) Urine Protein (Negative) Urine Glucose (UA) (Negative) g/dL Urine Ketones (NEGATIVE) Urine Occult Blood (Negative) Urine Nitrate (Negative) Urine Bilirubin (NEGATIVE) Ur Bilirubin Confirm (Negative) Urine Urobilinogen (0.2) E.U./dL Ur Leukocyte Esterase (NEGATIVE) Urine RBC Urine WBC Ur Squamous Epith Cells Ur Transition Epith Cell Ur Renal Epithelial Cell Calcium Oxalate Crystal Uric Acid Crystals Triple Phos Crystals Other Crystals Amorphous Sediment Urine Bacteria Hyaline Casts Granular Casts RBC Casts WBC Casts Other Casts Urine Mucus Urine Trichomonas Urine Yeast Urine Sperm Ur Culture Indicated? Micro UA Comment A. baumannii (PCR) Not detected (Not Detect) Mela albicans (PCR) Not detected (Not Detect) C. glabrata (PCR) Not detected (Not Detect) C. krusei (PCR) Not detected (Not Detect) C. parapsilosis (PCR) Not detected (Not Detect) C. tropicalis (PCR) Not detected (Not Detect) SARS-CoV-2 (PCR) (Negative) Enterobacteriac sp PCR Not detected (Not Detect) E. cloacae complex PCR Not detected (Not Detect) Enterococcus sp PCR Not detected (Not Detect) E. coli (PCR) Not detected (Not Detect) H. influenzae (PCR) Not detected (Not Detect) Klebsiella oxytoca PCR Not detected (Not Detect) Klebsiella pneumoniae Not detected (Not Detect) List. monocytogenes PCR Not detected (Not Detect) N. meningitidis (PCR) Not detected (Not Detect) Proteus species (PCR) Not detected (Not Detect) Serratia marcescens PCR Not detected (Not Detect) Staphylococcus sp PCR Not detected (Not Detect) Staph aureus (PCR) Not detected (Not Detect) mecA-Methicil Res Gene Not Reportable Streptococcus sp PCR Not detected (Not Detect) Group A Strep (PCR) Not detected (Not Detect) Strep agalactiae (PCR) Not detected (Not Detect) Strep pneumoniae (PCR) Not detected (Not Detect) P. aeruginosa (PCR) Not detected (Not Detect) Britt/B-Vanco Res Genes Not Reportable KPC-Carbap Res Gene PCR Not Reportable 09/06/21 09/06/21 09/06/21 Range/Units 15:06 15:15 15:30 WBC (4.5-11.0) X10^3/uL RBC (4.5-5.9) X10^6/uL Hgb (13.5-17.5) g/dL Hct (41-53) % MCV (80-100) fL MCH (26-34) PG MCHC (30-36) % RDW (11.6-14.8) % Plt Count (150-400) X10^3/uL Neut % (Auto) (50-75) % Lymph % (Auto) (25-40) % [place] % (Auto) (3-14) % Eos % (Auto) (2-4) % Baso % (Auto) (0-2) % Neut # (Auto) (4542-1520) /uL Lymph # (Auto) (7915-7791) /uL [place] # (Auto) (0-900) /uL Eos # (Auto) (0-450) /uL Baso # (Auto) (0-100) /uL Total Counted Seg Neutrophils % (38-70) % Band Neutrophils % (3-7) % Lymphocytes % (Manual) (25-45) % Monocytes % (Manual) (2-11) % Neutrophils # (Manual) (7828-4783) /uL RBC Morphology PT (10.1-12.7) SECONDS INR (0.9-1.3) APTT (26.4-36.2) SECONDS Sodium (137-145) mmol/L Potassium (3.4-5.1) mmol/L Chloride (98-107) mmol/L Carbon Dioxide (22-32) mmol/L BUN (9-20) mg/dL Creatinine (0.66-1.25) mg/dL Estimated GFR (>60) mL/min BUN/Creatinine Ratio (6-22) Glucose (80-110) mg/dL Lactate (0.7-2.1) mmol/L Calcium (8.4-10.2) mg/dL Total Bilirubin (0.2-1.3) mg/dL AST (17-59) IU/L ALT (<50) IU/L Alkaline Phosphatase (38-126) U/L Total Creatine Kinase (55-170) U/L CK-MB (CK-2) CK-MB (CK-2) Rel Index Troponin I (0.01-0.034) ng/mL Total Protein (6.3-8.2) g/dL Albumin (3.5-5.0) g/dL Globulin (1.7-4.1) g/dL Albumin/Globulin Ratio (1.0-2.8) Lipase (23-300) U/L Procalcitonin (<0.5) ng/mL Urine Color [place] Urine Appearance Clear Urine pH 5.0 (4.5-8.0) Ur Specific [place] 1.010 (1.000-1.035) Urine Protein 1+ H (Negative) Urine Glucose (UA) Trace H (Negative) g/dL Urine Ketones Negative (NEGATIVE) Urine Occult Blood 2+ H (Negative) Urine Nitrate Positive H (Negative) Urine Bilirubin 1+ H (NEGATIVE) Ur Bilirubin Confirm Positive H (Negative) Urine Urobilinogen 0.2 (0.2) E.U./dL Ur Leukocyte Esterase Negative (NEGATIVE) Urine RBC Cancelled 5-10/hpf H Urine WBC Cancelled 1-5/hpf Ur Squamous Epith Cells Cancelled 0-1 /hpf Ur Transition Epith Cell Cancelled Ur Renal Epithelial Cell Cancelled Calcium Oxalate Crystal Cancelled Uric Acid Crystals Cancelled Triple Phos Crystals Cancelled Other Crystals Cancelled Amorphous Sediment Cancelled Urine Bacteria Cancelled Few (2-10) H Hyaline Casts Cancelled 5-10/lpf Granular Casts Cancelled 5-10/lpf RBC Casts Cancelled WBC Casts Cancelled 0-1/lpf Other Casts Cancelled Urine Mucus Cancelled 1+ H Urine Trichomonas Cancelled Urine Yeast Cancelled Urine Sperm Cancelled Ur Culture Indicated? Cancelled Specimen cultured Micro UA Comment Cancelled A. baumannii (PCR) (Not Detect) Mela albicans (PCR) (Not Detect) C. glabrata (PCR) (Not Detect) C. krusei (PCR) (Not Detect) C. parapsilosis (PCR) (Not Detect) C. tropicalis (PCR) (Not Detect) SARS-CoV-2 (PCR) Negative (Negative) Enterobacteriac sp PCR (Not Detect) E. cloacae complex PCR (Not Detect) Enterococcus sp PCR (Not Detect) E. coli (PCR) (Not Detect) H. influenzae (PCR) (Not Detect) Klebsiella oxytoca PCR (Not Detect) Klebsiella pneumoniae (Not Detect) List. monocytogenes PCR (Not Detect) N. meningitidis (PCR) (Not Detect) Proteus species (PCR) (Not Detect) Serratia marcescens PCR (Not Detect) Staphylococcus sp PCR (Not Detect) Staph aureus (PCR) (Not Detect) mecA-Methicil Res Gene Streptococcus sp PCR (Not Detect) Group A Strep (PCR) (Not Detect) Strep agalactiae (PCR) (Not Detect) Strep pneumoniae (PCR) (Not Detect) P. aeruginosa (PCR) (Not Detect) Britt/B-Vanco Res Genes KPC-Carbap Res Gene PCR 09/06/21 09/07/21 09/07/21 Range/Units 17:41 05:53 05:53 WBC 33.6 H* (4.5-11.0) X10^3/uL RBC 3.13 L (4.5-5.9) X10^6/uL Hgb 10.4 L (13.5-17.5) g/dL Hct 31.4 L (41-53) % MCV 100.1 H (80-100) fL MCH 33.2 (26-34) PG MCHC 33.2 (30-36) % RDW 13.8 (11.6-14.8) % Plt Count 179 (150-400) X10^3/uL Neut % (Auto) Not Reportable (50-75) % Lymph % (Auto) Not Reportable (25-40) % [place] % (Auto) Not Reportable (3-14) % Eos % (Auto) Not Reportable (2-4) % Baso % (Auto) Not Reportable (0-2) % Neut # (Auto) (2457-8078) /uL Lymph # (Auto) Not Reportable (5901-2078) /uL [place] # (Auto) Not Reportable (0-900) /uL Eos # (Auto) (0-450) /uL Baso # (Auto) Not Reportable (0-100) /uL Total Counted 100 Seg Neutrophils % 77.0 H (38-70) % Band Neutrophils % 19.0 H (3-7) % Lymphocytes % (Manual) 2.0 L (25-45) % Monocytes % (Manual) 2.0 (2-11) % Neutrophils # (Manual) 48343 H (5159-4781) /uL RBC Morphology Normal morphology PT (10.1-12.7) SECONDS INR (0.9-1.3) APTT (26.4-36.2) SECONDS Sodium 130 L (137-145) mmol/L Potassium 3.9 (3.4-5.1) mmol/L Chloride 104 (98-107) mmol/L Carbon Dioxide 21 L (22-32) mmol/L BUN 21 H (9-20) mg/dL Creatinine 0.88 (0.66-1.25) mg/dL Estimated GFR > 60 (>60) mL/min BUN/Creatinine Ratio 23.9 H (6-22) Glucose 124 H (80-110) mg/dL Lactate 3.3 H (0.7-2.1) mmol/L Calcium 8.5 (8.4-10.2) mg/dL Total Bilirubin 5.9 H (0.2-1.3) mg/dL AST 626 H (17-59) IU/L ALT 234 H (<50) IU/L Alkaline Phosphatase 381 H (38-126) U/L Total Creatine Kinase (55-170) U/L CK-MB (CK-2) CK-MB (CK-2) Rel Index Troponin I (0.01-0.034) ng/mL Total Protein 6.5 (6.3-8.2) g/dL Albumin 3.0 L (3.5-5.0) g/dL Globulin 3.5 (1.7-4.1) g/dL Albumin/Globulin Ratio 0.9 L (1.0-2.8) Lipase 21 L (23-300) U/L Procalcitonin 23.7 H (<0.5) ng/mL Urine Color Urine Appearance Urine pH (4.5-8.0) Ur Specific [place] (1.000-1.035) Urine Protein (Negative) Urine Glucose (UA) (Negative) g/dL Urine Ketones (NEGATIVE) Urine Occult Blood (Negative) Urine Nitrate (Negative) Urine Bilirubin (NEGATIVE) Ur Bilirubin Confirm (Negative) Urine Urobilinogen (0.2) E.U./dL Ur Leukocyte Esterase (NEGATIVE) Urine RBC Urine WBC Ur Squamous Epith Cells Ur Transition Epith Cell Ur Renal Epithelial Cell Calcium Oxalate Crystal Uric Acid Crystals Triple Phos Crystals Other Crystals Amorphous Sediment Urine Bacteria Hyaline Casts Granular Casts RBC Casts WBC Casts Other Casts Urine Mucus Urine Trichomonas Urine Yeast Urine Sperm Ur Culture Indicated? Micro UA Comment A. baumannii (PCR) (Not Detect) Mela albicans (PCR) (Not Detect) C. glabrata (PCR) (Not Detect) C. krusei (PCR) (Not Detect) C. parapsilosis (PCR) (Not Detect) C. tropicalis (PCR) (Not Detect) SARS-CoV-2 (PCR) (Negative) Enterobacteriac sp PCR (Not Detect) E. cloacae complex PCR (Not Detect) Enterococcus sp PCR (Not Detect) E. coli (PCR) (Not Detect) H. influenzae (PCR) (Not Detect) Klebsiella oxytoca PCR (Not Detect) Klebsiella pneumoniae (Not Detect) List. monocytogenes PCR (Not Detect) N. meningitidis (PCR) (Not Detect) Proteus species (PCR) (Not Detect) Serratia marcescens PCR (Not Detect) Staphylococcus sp PCR (Not Detect) Staph aureus (PCR) (Not Detect) mecA-Methicil Res Gene Streptococcus sp PCR (Not Detect) Group A Strep (PCR) (Not Detect) Strep agalactiae (PCR) (Not Detect) Strep pneumoniae (PCR) (Not Detect) P. aeruginosa (PCR) (Not Detect) Britt/B-Vanco Res Genes KPC-Carbap Res Gene PCR 09/07/21 Range/Units 05:53 WBC (4.5-11.0) X10^3/uL RBC (4.5-5.9) X10^6/uL Hgb (13.5-17.5) g/dL Hct (41-53) % MCV (80-100) fL MCH (26-34) PG MCHC (30-36) % RDW (11.6-14.8) % Plt Count (150-400) X10^3/uL Neut % (Auto) (50-75) % Lymph % (Auto) (25-40) % Buchanan % (Auto) (3-14) % Eos % (Auto) (2-4) % Baso % (Auto) (0-2) % Neut # (Auto) (4628-7073) /uL Lymph # (Auto) (9469-3590) /uL Buchanan # (Auto) (0-900) /uL Eos # (Auto) (0-450) /uL Baso # (Auto) (0-100) /uL Total Counted Seg Neutrophils % (38-70) % Band Neutrophils % (3-7) % Lymphocytes % (Manual) (25-45) % Monocytes % (Manual) (2-11) % Neutrophils # (Manual) (0289-2892) /uL RBC Morphology PT (10.1-12.7) SECONDS INR (0.9-1.3) APTT (26.4-36.2) SECONDS Sodium (137-145) mmol/L Potassium (3.4-5.1) mmol/L Chloride (98-107) mmol/L Carbon Dioxide (22-32) mmol/L BUN (9-20) mg/dL Creatinine (0.66-1.25) mg/dL Estimated GFR (>60) mL/min BUN/Creatinine Ratio (6-22) Glucose (80-110) mg/dL Lactate 1.8 (0.7-2.1) mmol/L Calcium (8.4-10.2) mg/dL Total Bilirubin (0.2-1.3) mg/dL AST (17-59) IU/L ALT (<50) IU/L Alkaline Phosphatase (38-126) U/L Total Creatine Kinase (55-170) U/L CK-MB (CK-2) CK-MB (CK-2) Rel Index Troponin I (0.01-0.034) ng/mL Total Protein (6.3-8.2) g/dL Albumin (3.5-5.0) g/dL Globulin (1.7-4.1) g/dL Albumin/Globulin Ratio (1.0-2.8) Lipase (23-300) U/L Procalcitonin (<0.5) ng/mL Urine Color Urine Appearance Urine pH (4.5-8.0) Ur Specific [place] (1.000-1.035) Urine Protein (Negative) Urine Glucose (UA) (Negative) g/dL Urine Ketones (NEGATIVE) Urine Occult Blood (Negative) Urine Nitrate (Negative) Urine Bilirubin (NEGATIVE) Ur Bilirubin Confirm (Negative) Urine Urobilinogen (0.2) E.U./dL Ur Leukocyte Esterase (NEGATIVE) Urine RBC Urine WBC Ur Squamous Epith Cells Ur Transition Epith Cell Ur Renal Epithelial Cell Calcium Oxalate Crystal Uric Acid Crystals Triple Phos Crystals Other Crystals Amorphous Sediment Urine Bacteria Hyaline Casts Granular Casts RBC Casts WBC Casts Other Casts Urine Mucus Urine Trichomonas Urine Yeast Urine Sperm Ur Culture Indicated? Micro UA Comment A. baumannii (PCR) (Not Detect) Mela albicans (PCR) (Not Detect) C. glabrata (PCR) (Not Detect) C. krusei (PCR) (Not Detect) C. parapsilosis (PCR) (Not Detect) C. tropicalis (PCR) (Not Detect) SARS-CoV-2 (PCR) (Negative) Enterobacteriac sp PCR (Not Detect) E. cloacae complex PCR (Not Detect) Enterococcus sp PCR (Not Detect) E. coli (PCR) (Not Detect) H. influenzae (PCR) (Not Detect) Klebsiella oxytoca PCR (Not Detect) Klebsiella pneumoniae (Not Detect) List. monocytogenes PCR (Not Detect) N. meningitidis (PCR) (Not Detect) Proteus species (PCR) (Not Detect) Serratia marcescens PCR (Not Detect) Staphylococcus sp PCR (Not Detect) Staph aureus (PCR) (Not Detect) mecA-Methicil Res Gene Streptococcus sp PCR (Not Detect) Group A Strep (PCR) (Not Detect) Strep agalactiae (PCR) (Not Detect) Strep pneumoniae (PCR) (Not Detect) P. aeruginosa (PCR) (Not Detect) Britt/B-Vanco Res Genes KPC-Carbap Res Gene PCR Urine Dip Bedside Urine Glucose Negative Bedside Urine Bilirubin - Negative Bedside Urine Ketone - Negative Urine Specific [place] 1.015 Bedside Urine Occult Blood + Bedside Urine pH 6.0 Bedside Urine Protein + 30 Bedside Urine Urobilinogen - Negative Bedside Urine Nitrite - Negative Bedside Urine Leukocytes - Negative Esterase MDM Narrative Medical decision making narrative: Patient overall presents confused tachycardic with fever of 103. He is found to meet sepsis criteria with leukocytosis of 13. He does have a UTI however he is found to have elevated bilirubin of 5.6 previously on 08/02/2021 he had a normal bilirubin with elevated liver enzymes. Liver enzymes were also elevated today however the bilirubin is new. Patient does not have any right upper quadrant pain. Ultrasound he shows limited results concerning for possible occluded biliary stent. CT also concerning for possible occluded biliary stent and also liver abscess is found. 7:17pm Jose David, infectious disease doctor has reviewed CT. He agrees with current antibiotic treatment of Zosyn Flagyl and vancomycin. Questions if this is chronic. Unfortunately we do not have any [facility] records. States that patient does need in [place] are drain. Also questions if patient has traveled to [place] recently and maybe an amebea. The 1st place a call to transfer was [facility] unfortunately they do not have any bed availability. Further facilities were called including [facility], [facility]. Unfortunately no beds available. [facility] did call but they do not have GI available for stent evaluation. Patient's blood pressure has decreased some in the emergency department continue to get sepsis fluids. Patient remains slightly tachycardic although that is improving. Fever is also improving. Patient will need to be transferred to a place where he can have interventional radiology drain liver abscess and GI to evaluate stent Signed out to Dr. Marta lozano: I did receive turned over. I have reviewed patient's history and physical in labs and any radiologic studies performed up to this point. We were able to obtain records from [facility]. Which is when her patient has been receiving his care. 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 Left hepatic duct stent placed on 07/20/2019 to. Also concern for adenocarcinoma versus high-grade dysplasia. He is currently only receiving frequent endoscopic management of his symptoms. There was a planned that the patient would return in 3 months for a stent exchange. I evaluated the patient. He was alert and oriented to person and place and year. He stated that he went to his primary doctor earlier today for chills and generally not feeling very well. He did admit that he was very confused but now states that he feels much better. He has received antibiotics and fluid. CT scan concerning for blockage of the stent and also a hepatic abscess. He also has a nitrite positive urine. Attempted to contact multiple places for transfers the patient is most likely going to need Interventional Radiology and Gastroenterology. Patient would most benefit for transfer back to [facility] secondary to continuity of care. We did receive a call from [facility] and they do have bed availability however I re-contacted [facility]. They are hopeful that they will have a bed available within the next 12-24 hours and given his extensive history, care already established at this facility and his clinical improvement after fluids and antibiotics that keeping him here in this emergency department until a bed becomes available would be most beneficial to the patient. Care turned over to Dr. Samuels at change of shift to follow up and disposition. I did discuss the case with Dr. velasquez with GI at [facility] who agrees that patient should be transferred for ERCP is he is also concerned based on his history and physical and labs and CT scan findings that he will most likely need a new stent placed. Patient's blood pressures have had a systolic in the 80s to 90s however his mean arterial pressure has been in the upper 60s and low 70s. We will continue to monitor. Repeat labs ordered. Review of his repeat labs shows a worsening leukocytosis. Normalization of his lactate. Slightly worsening of his bilirubin and LFTs. He reports that he feels much better. He is afebrile. Not tachycardic. Has had systolic blood pressures in the 80's-90's once again his mean arterial pressures have been greater than 65 and also has had multiple an arterial pressures greater than 70. Patient has received 30 cc/kilogram of IV fluids and is on maintenance fluids currently. Will hold on pressors for now given his labs and exam. Care turned over to Dr. Samuels. 0700 (RAYSA) patient received in sign-out from Dr. Lanker, clinical course reviewed up until this point. Independent history and physical exam performed. 829 - Dr. Vargas ( Hospitalist) called, accepts patient. No bed at the moment, they will call back soon 929 - has called back, requests transfer to their ED 0935 - [facility], will arrive with ALS unit at 1045 Critical Care Time <Zonia Slater DO - Last Filed: 09/11/21 07:27> Critical Care Time Critical Care Time: Yes Total Critical Care Time: 45 Attestation: The high probability of a clinically significant, sudden or life threatening deterioration of the [cardiovascular] system(s) required my full and direct attention, intervention and personal management. The aggregate critical care time was [45] minutes. This time is in addition to time spent performing reported procedures but includes the following: [x] Data Review and interpretation [x] Patient assessment and monitoring of vital signs [x] Documentation [x] Medication orders and management <Sam Samuels, DO - Last Filed: 09/07/21 11:58> Critical Care Time Total Critical Care Time: 60 Attestation: The high probability of a clinically significant, sudden or life threatening deterioration of the [cardiovascular] system(s) required my full and direct attention, intervention and personal management. The aggregate critical care time was [60] minutes. This time is in addition to time spent performing reported procedures but includes the following: [x] Data Review and interpretation [x] Patient assessment and monitoring of vital signs [x] Documentation [x] Medication orders and management Discharge Plan Departure Patient Disposition: [facility] Clinical Impression: Abscess of liver, Obstruction of biliary stent Referrals: Chi Mendoza MD [Primary Care Provider] -
[2021-09-06 15:19] LABS: Alanine Aminotransferase 150 IU/L (<50); Alkaline Phosphatase 719 U/L (38-126); Aspartate Aminotransferase 552 IU/L (17-59); BUN Creatinine Ratio 13.1 (6-22); Bilirubin Total 5.6 mg/dL (0.2-1.3); Blood Urea Nitrogen 16 mg/dL (9-20); Calcium 9.6 mg/dL (8.4-10.2); Carbon Dioxide 21 mmol/L (22-32); Chloride 98 mmol/L (98-107); Estimated Glomerular Filt Rate 59 mL/min (>60); Globulin 4.2 g/dL (1.7-4.1); Glucose 133 mg/dL (80-110); HEMOLYSIS < 15 (0-50); Lipase 39 U/L (23-300); Potassium 3.9 mmol/L (3.4-5.1); Sodium 132 mmol/L (137-145); Total Protein 8.2 g/dL (6.3-8.2)
--- NOTE | 2021-09-06 15:19 | PC.NURSE ---
pt appears slightly confused on where he is and what he is doing here. pt oriented, curtains left open for visualization of patient at all times from nurses station
[2021-09-06 15:21] LABS: Lactate (Lactic Acid) 3.3 mmol/L (0.7-2.1)
--- NOTE | 2021-09-06 15:22 | DI.US.S_ITS ---
PROCEDURE: US ABDOMEN LIMITED INDICATIONS: ruq pain TECHNIQUE: Real-time focused scanning was performed of the abdomen, with image documentation. COMPARISON: None. FINDINGS: Suboptimal imaging secondary to patient condition. The liver is normal size and mildly hyperechoic. There is a prominent focus of air measuring about 4.1 cm in the caudal right hepatic lobe. Several foci of surrounding gas present in the parenchyma, portal venous gas versus biliary gas. Mild left lobe biliary dilatation. Gallbladder was not seen. Probable stent in the common duct. No extrahepatic biliary dilatation. The visible portion of the proximal pancreas is within normal limits. IMPRESSION: 1. Prominent gas containing focus within the hepatic parenchyma suspicious for abscess. Punctate surrounding air may be portal venous gas. Pneumobilia is not excluded, particularly given presence of the biliary stent. 2. Mild intrahepatic biliary dilatation. 3. Findings called to Dr. Slater at 17:08 hours Dictated by: Kiersten Ying M.D. on 09/06/2021 at 17:00 Approved by: Kiersten Ying M.D. on 09/06/2021 at 17:12
[2021-09-06 15:30] LABS: Appearance Urine UA CLEAR; Bilirubin Urine UA 1+ (NEGATIVE); Color Urine UA ORANGE; Glucose Urine UA TRACE g/dL (Negative); Ketones Urine UA NEGATIVE (NEGATIVE); Leukocyte Esterase Urine UA NEGATIVE (NEGATIVE); Nitrite Urine UA POSITIVE (Negative); Occult Blood Urine UA 2+ (Negative); Protein Urine UA 1+ (Negative); Urobilinogen Urine UA 0.2 E.U./dL (0.2)
[2021-09-06 15:36] LABS: Procalcitonin 10.2 ng/mL (<0.5)
[2021-09-06] MEDS: SODIUM CHLORIDE 0.9% 1,000 ML 1000 ML IV (15:43)
[2021-09-06 15:44] LABS: Ictotest Urine Positive (Negative); RBC Urine 5-10/HPF (0-5/HPF); Squamous Epithelial Cell Urine 0-1 /HPF (0-5/HPF); WBC Urine 1-5/HPF (0-5/HPF)
[2021-09-06 15:45] LABS: Bacteria Urine Few (2-10); Culture Indicated Urine Specimen Cultured; Granular Casts Urine 5-10/LPF; Hyaline Casts Urine 5-10/LPF; Mucus Urine 1+ (Negative); White Blood Cell Casts Urine 0-1/LPF
[2021-09-06] MEDS: PIPERACILLIN/TAZO 4.5 GM in SODIUM CHLORIDE 0.9% 100 ML 200 ML IV (15:53)
[2021-09-06] MEDS: ACETAMINOPHEN 325 MG TABLET 975 MG PO (15:56)
[2021-09-06 16:29] LABS: Creatine Kinase 62 U/L (55-170)
--- NOTE | 2021-09-06 16:39 | DI.CT.S_ITS ---
PROCEDURE: CT ABDOMEN PELVIS W CON INDICATIONS: elevated bilirubin, stent TECHNIQUE: After the administration of oral and IV contrast, axial sections were acquired from the lung bases to the pubic symphysis. Coronal and sagittal reformats were performed. For radiation dose reduction, the following was used: automated exposure control, adjustment of mA and/or kV according to patient size. COMPARISON: [facility], US, US ABDOMEN LIMITED, 09/06/2021, 15:39. [facility], CT, IVP (ABD & PEL WWO CONTRAST), 02/24/2015, 10:45. [facility], CT, CT ABDOMEN PANCREATIC PROTOCOL, 08/15/2017, 11:23. FINDINGS: Image quality: Excellent. Lung bases: There are bibasilar atelectasis. Small hiatal hernia. Heart: Normal size. Moderate coronary artery calcification. ABDOMEN: Liver: Liver is normal in size. There is a biliary stent in the common bile duct and left hepatic duct. There is intrahepatic biliary dilation, most pronounced in the left hepatic lobe and the posterior segment of the right hepatic lobe. A air collection is seen in the inferior aspect of the right hepatic lobe (segment 6) measuring 4.4 cm x 2.7 cm. There is decreased enhancement in the inferior aspect of the right hepatic lobe with branching air collection, most likely pneumobilia. Gallbladder: Gallbladder is absent. Biliary ducts: There is a biliary stent. There is intrahepatic biliary dilation. Pancreas: Unremarkable. Spleen: Unremarkable. Adrenal Glands: Unremarkable. Kidneys and Ureters: Unremarkable. Stomach and Bowel: Stomach, small bowel loops, and colon are normal in caliber. Fluid-filled small intestine is noted measuring up to 2.5 cm in diameter. There is a moderate amount of stool in colon. Peritoneum: No free intraperitoneal fluid or organized fluid collections. No free air. Ventral Wall: There is a moderate-sized ventral hernia containing a short segment of small intestine. Abdominal Nodes: No retroperitoneal or mesenteric adenopathy by size criteria. Vessels: Aorta and inferior vena cava are normal in size. Moderate atherosclerotic calcifications. PELVIS: Pelvic Organs: Prostate is enlarged. Bladder: Unremarkable. Pelvic Nodes: No enlarged lymph nodes. Miscellaneous: No inguinal hernias are seen. Bones: Degenerative changes are noted. IMPRESSION: 1. There is a biliary stent. There is intrahepatic biliary dilation. The CT finding is concerning for biliary stent malfunction. 2. There is a 4.4 x 2.7 cm air collection liver involving the inferior aspect of the segment 6. It is suspicious for an intrahepatic abscess. There is decreased enhancement in the surrounding liver and branch in air collections likely pneumobilia. 3. A moderate-sized ventral hernia containing a short segment of small intestine. 4. Small hiatal hernia. 5. Fluid-filled small intestine with upper limits normal in caliber. No transitional point. The finding is nonspecific. The result was discussed with Dr. Slater. Dictated by: Paulino Hill M.D. on 09/06/2021 at 17:09 Approved by: Paulino Hill M.D. on 09/06/2021 at 17:23
[2021-09-06 16:41] LABS: Troponin I < 0.012 ng/mL (0.01-0.034)
[2021-09-06 16:44] LABS: COVID19 -Nasal RAPID Negative (Negative)
[2021-09-06 16:55] LABS: Reflexed Lactate in 2 Hours Y
[2021-09-06] MEDS: LACTATED RINGERS 635.03 ML IV (17:03)
[2021-09-06] MEDS: VANCOMYCIN 1,000 MG/200 ML PIGGYBACK 200 MG IV (17:15)
[2021-09-06] MEDS: metroNIDAZOLE 500 MG/100 ML PIGGYBACK 100 MG IV ×2 (17:38→21:03)
[2021-09-06] MEDS: MORPHINE 2 MG/ML INJ IV ×2 (17:46→18:21)
[2021-09-06 18:07] LABS: Lactate 2HR (Lactic Acid Rflx) 3.3 mmol/L (0.7-2.1)
--- NOTE | 2021-09-06 19:29 | PC.NURSE ---
Addendum entered by Rob Santana CNA 09/06/21 19:48: Patient placed on CC list 1948 Original Note: Provider Dr. Zonia Slater asked me to place this patient on hospital transfer list. Patient placed on [facility] transfer list at 1845 Patient placed on [facility] transfer list at 1848 Patient placed on [facility] transfer list at 1853 Patient placed on [facility] list at 1905 Patient placed on [facility] list 1911 Patient denied placement on [facility] [address] [facility] and left message for coordinator to call back 1920 Called [facility] transfer center and placed on transfer list 193
[2021-09-06] MEDS: LACTATED RINGERS 1,000 ML 100 ML IV (21:02)
[2021-09-06] MEDS: PIPERACILLIN/TAZO 3.375 GM in SODIUM CHLORIDE 0.9% 100 ML 25 ML IV (22:17)
[2021-09-07] VITALS (26 sets, daily range): BP systolic 88–119; BP diastolic 49–65; PULSE 69–92; RESP 15–24; TEMP 36.6–37.1; O2SAT 95–99
[2021-09-07] MEDS: metroNIDAZOLE 500 MG/100 ML PIGGYBACK 100 MG IV (04:15)
[2021-09-07] MEDS: PIPERACILLIN/TAZO 3.375 GM in SODIUM CHLORIDE 0.9% 100 ML 25 ML IV (05:19)
[2021-09-07 05:42] LABS: Acinetobacter baumannii Not Detected (Not Detect); E. coli Not Detected (Not Detect); Enterobacter cloacae complex Not Detected (Not Detect); Enterobacteriaceae species Not Detected (Not Detect); Enterococcus species Not Detected (Not Detect); Haemophilus influenzae Not Detected (Not Detect); Listeria monocytogenes Not Detected (Not Detect); Proteus species Not Detected (Not Detect); Serratia marcescens Not Detected (Not Detect); Staphylococcus species Not Detected (Not Detect); Streptococcus agalactiae (Gr B Not Detected (Not Detect); Streptococcus pneumonia Not Detected (Not Detect); Streptococcus pyogenes (Gr A) Not Detected (Not Detect); Streptococcus species Not Detected (Not Detect)
[2021-09-07 05:43] LABS: Candida albicans Not Detected (Not Detect); Candida glabrata Not Detected (Not Detect); Candida krusei Not Detected (Not Detect); Candida parapsilosis Not Detected (Not Detect); Candida tropicalis Not Detected (Not Detect); Neisseria meningitidis Not Detected (Not Detect); Pseudomonas aeruginosa Not Detected (Not Detect)
[2021-09-07 06:28] LABS: Hematocrit 31.4 % (41-53); Hemoglobin 10.4 g/dL (13.5-17.5); Mean Corpuscular HGB Conc 33.2 % (30-36); Mean Corpuscular Hemoglobin 33.2 PG (26-34); Mean Corpuscular Volume 100.1 fL (80-100); Platelet Count 179 X10^3/uL (150-400); Red Blood Cell Count 3.13 X10^6/uL (4.5-5.9); Red Cell Distribution Width 13.8 % (11.6-14.8)
[2021-09-07 06:30] LABS: White Blood Cell Count 33.6 X10^3/uL (4.5-11.0)
[2021-09-07 06:31] LABS: Add Manual Diff / Slide Review YES
[2021-09-07 06:33] LABS: Lactate (Lactic Acid) 1.8 mmol/L (0.7-2.1)
[2021-09-07 06:34] LABS: Alanine Aminotransferase 234 IU/L (<50); Albumin Globulin Ratio 0.9 (1.0-2.8); Alkaline Phosphatase 381 U/L (38-126); Aspartate Aminotransferase 626 IU/L (17-59); BUN Creatinine Ratio 23.9 (6-22); Bilirubin Total 5.9 mg/dL (0.2-1.3); Blood Urea Nitrogen 21 mg/dL (9-20); Calcium 8.5 mg/dL (8.4-10.2); Carbon Dioxide 21 mmol/L (22-32); Chloride 104 mmol/L (98-107); Estimated Glomerular Filt Rate > 60 mL/min (>60); Globulin 3.5 g/dL (1.7-4.1); Glucose 124 mg/dL (80-110); HEMOLYSIS < 15 (0-50); Lipase 21 U/L (23-300); Potassium 3.9 mmol/L (3.4-5.1); Sodium 130 mmol/L (137-145); Total Protein 6.5 g/dL (6.3-8.2)
[2021-09-07 06:50] LABS: Procalcitonin 23.7 ng/mL (<0.5)
[2021-09-07] MEDS: VANCOMYCIN PER PHARMACY 1 REQUEST MISC (07:17)
[2021-09-07 07:20] LABS: Neutrophils Absolute Manual 32256 /uL (3000-5900); RBC Morphology Normal Morphology; Total Cells Counted 100
[2021-09-07] MEDS: SODIUM CHLORIDE 0.9% 1,000 ML 100 ML IV (09:30)
--- NOTE | 2021-09-07 11:11 | PC.NURSE ---
NW P/U 1045 Accepted -ED Dr. Vargas/ [facility] -[facility] Report # [phone] report called to tory wiggins
== END 2021-09-07 11:17 | disposition short-term general hospital (02) ==
PROVIDERS: Emergency Medicine; Emergency Provider Emergency Medicine; PCP Internal Medicine
DX: K75.0 Abscess of liver (principal); T85.590A Other mechanical complication of bile duct prosthesis, initial encounter; R00.0 Tachycardia, unspecified; Z20.822 Contact with and (suspected) exposure to COVID-19
CPT/HCPCS: 36415; 71045; 74177; 76705; 80053; 81001; 81003; 82550; 83605; 83690; 84145; 84484; 85007; 85025; 85610; 85730; 87040; 87077; 87086; 87150; 87205; 87635; 93005; 93010; 96365; 96366; 96367; 96368; 96375; 96376; 99285; C9803; J2270; J2543; Q9967

== ENCOUNTER → 2021-10-09 10:44 | Outpatient (CLI) | payer MEDICARE, SELFPAY ==
--- NOTE | 2021-10-09 | DI.CT.S_ITS ---
PROCEDURE: CT ABDOMEN WWO PELVIS W INDICATIONS: Abscess of liver TECHNIQUE: After the administration of oral contrast, 5 mm thick sections acquired from the diaphragms to the iliac crests. After the administration of intravenous contrast, 5 mm thick sections acquired from the diaphragms to the symphysis. 5 mm thick coronal and sagittal reformats were acquired. For radiation dose reduction, the following was used: automated exposure control, adjustment of mA and/or kV according to patient size. COMPARISON: [facility], CT, CT ABDOMEN PELVIS W CON, 09/06/2021, 16:51. FINDINGS: Image quality: Excellent. Lung bases: Lung bases are clear. Heart size is normal. Solid organs: Liver: A pigtail catheter is present within the inferior right lobe of the liver. A previously seen collection of air at this location has resolved with no evidence of abscess at this time. There is mild intrahepatic biliary ductal dilatation. A catheter in the right lobe of the liver centrally is seen of uncertain location. The portal vein and hepatic veins are patent. Biliary: Status post cholecystectomy. Pancreas: The pancreas has no mass or ductal dilatation. There is no surrounding inflammation. Spleen: Normal size. There are no masses. Adrenals: No hypertrophy or nodules. Kidneys: No obstructive calculus or hydronephrosis. No solid mass. No cystic mass. Peritoneum and bowel: The distal esophagus and stomach are normal. The small bowel demonstrates fluid throughout. The large bowel has increased stool consistent with constipation. No free fluid or air. Nodes and vessels: No retroperitoneal or mesenteric adenopathy by size criteria. The aorta has atherosclerosis with no aneurysmal dilatation. Miscellaneous: Previously seen ventral hernia is significantly smaller. PELVIS: Genitourinary: The bladder has no wall thickening or mass. No bladder calcifications. Bones: Degenerative changes with no focal abnormality. Multilevel disc disease. IMPRESSION: 1. Liver abscess has resolved. There is no residual fluid or air are around the pigtail catheter in the inferior right lower lobe of the liver. 2. Fluid in the small intestines is nonspecific but can be seen with enteritis. Dictated by: Roberto Coker M.D. on 10/09/2021 at 14:32 Approved by: Roberto Coker M.D. on 10/09/2021 at 14:42
[2021-10-09 11:46] LABS: Estimated Glomerular Filt Rate > 60 mL/min (>60)
== END ==
PROVIDERS: PCP Internal Medicine; Referring Provider Internal Medicine; Visit Provider Internal Medicine
DX: K75.0 Abscess of liver (principal)
CPT/HCPCS: 36415; 74178; 82565; Q9967

== ENCOUNTER → 2021-10-30 09:31 | Outpatient (CLI) | payer MEDICARE, SELFPAY ==
[2021-10-30 11:05] LABS: Alanine Aminotransferase 126 IU/L (<50); Albumin 4.4 g/dL (3.5-5.0); Alkaline Phosphatase 951 U/L (38-126); Aspartate Aminotransferase 510 IU/L (17-59); Bilirubin Total 1.1 mg/dL (0.2-1.3); Bilirubin Unconjugated 0.6 mg/dL (0.0-1.1); Globulin 4.5 g/dL (1.7-4.1); HEMOLYSIS < 15 (0-50); Total Protein 8.9 g/dL (6.3-8.2)
== END ==
PROVIDERS: PCP Internal Medicine; Referring Provider Internal Medicine Gastroenterology; Visit Provider Internal Medicine Gastroenterology
DX: C22.1 Intrahepatic bile duct carcinoma (principal)
CPT/HCPCS: 36415; 80076

== ENCOUNTER 2022-01-03 11:07 | Emergency (ER) | payer MEDICARE, SELFPAY ==
[2022-01-03 11:15] VITALS: BP 153/66; PULSE 65; RESP 15; TEMP 37.1; O2SAT 99; BMI 20.7
--- NOTE | 2022-01-03 11:37 | ED.RECABL ---
HPI - Recheck/Abnormal Lab/Rx General Chief Complaint: Recheck/Abnormal Lab/Rx Stated Complaint: Abnormal labs- sent by Dr Mendoza Time Seen by Provider: 01/03/22 11:15 Source: patient Mode of arrival: Ambulatory History of Present Illness HPI narrative: Patient is an 81-year-old male. 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 Is not currently undergoing any chemotherapy. He has had issues with infections in the past around his hepatobiliary system. Most recent 1 was in September of this year. He is not currently on any antibiotics. He is not having any discomfort. Has had ERCPs in the past and has had polyps removed although they have all been ?precancerous ?. He states that for the past several days/week he has had subjective fevers and chills and he was concerned about another infection so earlier this week he went to his primary provider. Had labs drawn. Got a phone call today stating that his liver enzymes were elevated and was asked to come to the emergency department for evaluation. Is not currently having any fevers. Is having some dark-colored urine. Some constipation. No abdominal pain. No nausea vomiting. No chest pain. No shortness of breath. Related Data Allergies Allergy/AdvReac Type Severity Reaction Status Date / Time No Known Drug Allergies Allergy Verified 01/03/22 11:25 Review of Systems Review of Systems ROS Unobtainable: All systems reviewed & are unremarkable except as noted in HPI and below Patient History Medical History Hematuria Hyponatremia Inguinal hernia unilateral, non-recurrent Reaction to influenza immunization Social History Smoking Status: Current every day smoker Smoking Status: Current every day smoker alcohol intake frequency: holidays/special occasions only Substance Use Type: does not use Exam Initial Vital Signs Initial Vital Signs: Vital Signs Temperature 98.8 F 01/03/22 11:15 Pulse Rate 65 01/03/22 11:15 Respiratory Rate 15 01/03/22 11:15 Blood Pressure 153/66 H 01/03/22 11:15 Pulse Oximetry 99 01/03/22 11:15 Oxygen Delivery Method 01/03/22 11:15 HENMT Head: normal to inspection Resp Effort & Inspection: normal respiratory effort Auscultation: clear to auscultation bilaterally Cardio Rate: regular rate Rhythm: regular rhythm GI Inspection: normal to inspection Palpation: soft, No firm, No guarding and No tender Skin General: no rashes or lesions noted Neuro General: patient alert, patient awake, patient oriented x3 and moves all extremities Extrem General: normal to inspection and capillary refill normal Psych Appearance: grossly normal and well kempt Course Orders Ordered: ED Orders 01/03/22 11:18 Complete Blood Count AUTO DIFF Stat Comprehensive Metabolic Panel Stat Lipase Stat 01/03/22 12:00 CT abdomen pelvis w con Stat Vital Signs Vital signs: Vital Signs - 8 hr 01/03/22 11:15 01/03/22 14:19 Temperature 98.8 F Pulse Rate 65 67 Respiratory Rate 15 18 Blood Pressure 153/66 H 148/69 H Pulse Oximetry 99 97 Oxygen Delivery Method Room Air Room Air MDM - Recheck/Abnormal Lab/Rx Medical Records Attestation: I reviewed the patient's medical records. Lab Data Attestation: I reviewed the patient's lab results. Result diagrams: 01/03/22 11:18 01/03/22 11:18 Labs: Lab Results 01/03/22 01/03/22 Range/Units 11:18 11:18 WBC 10.7 (4.5-11.0) X10^3/uL RBC 3.81 L (4.5-5.9) X10^6/uL Hgb 13.1 L (13.5-17.5) g/dL Hct 38.0 L (41-53) % MCV 99.8 (80-100) fL MCH 34.3 H (26-34) PG MCHC 34.4 (30-36) % RDW 13.8 (11.6-14.8) % Plt Count 247 (150-400) X10^3/uL Neut % (Auto) 77.3 H (50-75) % Lymph % (Auto) 9.8 L (25-40) % [place] % (Auto) 12.0 (3-14) % Eos % (Auto) 0.4 L (2-4) % Baso % (Auto) 0.5 (0-2) % Neut # (Auto) 8200 H (4030-8002) /uL Lymph # (Auto) 1000 L (0165-1389) /uL [place] # (Auto) 1300 H (0-900) /uL Eos # (Auto) 0 (0-450) /uL Baso # (Auto) 100 (0-100) /uL Sodium 131 L (137-145) mmol/L Potassium 4.9 (3.4-5.1) mmol/L Chloride 97 L (98-107) mmol/L Carbon Dioxide 25 (22-32) mmol/L BUN 21 H (9-20) mg/dL Creatinine 0.73 (0.66-1.25) mg/dL Estimated GFR > 60 (>60) mL/min BUN/Creatinine Ratio 28.8 H (6-22) Glucose 90 (80-110) mg/dL Calcium 9.9 (8.4-10.2) mg/dL Total Bilirubin 3.7 H (0.2-1.3) mg/dL AST 606 H (17-59) IU/L ALT 217 H (<50) IU/L Alkaline Phosphatase 1139 H (38-126) U/L Total Protein 8.4 H (6.3-8.2) g/dL Albumin 4.0 (3.5-5.0) g/dL Globulin 4.4 H (1.7-4.1) g/dL Albumin/Globulin Ratio 0.9 L (1.0-2.8) Lipase 137 (23-300) U/L Imaging Data CT scan - abdomen/pelvis: Radiologist's Impression: [address] [address] [address] Scan Report Signed Patient: Leonid Munoz MR#: [id number] : 1940 Acct:[id number] Age/Sex: 81 / M Date of Service: 01/03/22 Loc: ED Accession Number: [id number] ?? Procedure: CT abdomen pelvis w con Ordering Provider: Nelson Lozano D.O. PROCEDURE:? CT ABDOMEN PELVIS W CON ? INDICATIONS:? History of hepatobiliary abscess with fevers ? TECHNIQUE:? After the administration of intravenous contrast, axial sections acquired from the lung bases to the pubic symphysis.? Coronal and sagittal reformats were performed.? For radiation dose reduction, the following was used:? automated exposure control, adjustment of mA and/or kV according to patient size.? ? COMPARISON:? [facility], CT, CT ABDOMEN PELVIS W CON, 09/06/2021, 16:51. ? FINDINGS: Image quality:? Excellent.? ? Lung bases:? Lung bases are clear.? Heart size is normal. ? Solid organs:? Liver:? The liver has mild intrahepatic biliary ductal dilatation.? An area of ill-defined arterial enhancement is present within the medial aspect of the right lobe of the liver centered on series 2, image 14. Previously seen abscess in the right lobe of the liver has resolved.? The portal vein and hepatic veins are patent. Biliary:? Status post cholecystectomy. Pancreas: The pancreas has no mass or ductal dilatation. There is no surrounding inflammation. Spleen: Normal size. There are no masses. Adrenals: No hypertrophy or nodules. Kidneys: No obstructive calculus or hydronephrosis.? No solid mass. No cystic mass. ? Peritoneum and bowel:? The distal esophagus and stomach are normal.? The small bowel has a normal caliber but has fluid throughout.? Increased stool is seen throughout the large bowel.? The large bowel has a normal caliber and appearance.? The appendix is not distinctly visualized, however there are no CT findings to suggest acute appendicitis.? No free fluid or air.? ? Nodes and vessels:? No retroperitoneal or mesenteric adenopathy by size criteria.? The aorta has atherosclerosis with no aneurysmal dilatation.? ? Miscellaneous:? There is a ventral hernia containing small bowel, similar to the prior CT. ? PELVIS:? Genitourinary:? The bladder has no wall thickening or mass.? No bladder wall mass.? The prostate is enlarged with a central calcification. ? Bones:? Degenerative changes with no focal abnormality.? No vertebral body compression fractures.? ? IMPRESSION:? 1. Previously seen biliary stent is no longer present. 2. Mild intrahepatic biliary ductal dilatation. 3. Hepatic abscess in the right lobe hepatic segment has resolved. 4. Small hiatal hernia. 5. Ill-defined area of enhancement in the medial right lower lobe.? This is located in the region of a previous biliary stent.? This is of unclear significance, however a hepatobiliary neoplasm could cause this appearance.? ? ? Dictated by: Roberto Coker M.D. on 01/03/2022 at 13:32 ? ? Approved by: Roberto Coker M.D. on 01/03/2022 at 13:42?? MDM Narrative Medical decision making narrative: Patient does have elevations in his LFTs and also has a slight elevation in his bilirubin today. He is not jaundiced. He has no discomfort with palpation. The CT scan does not show any signs of abscess. We did discuss the CT scan findings. No further workup needed in the emergency department. No indication for admission to the hospital today. I did tell him that his liver function tests seem to be worsening and he needs to contact his liver doctors at [facility] to discuss further evaluation and treatment. He was given return precautions. He expressed understanding and agreement. Discharge Plan Departure Patient Disposition: Home Clinical Impression: Transaminitis Instructions: Liver Function Tests Activity Restrictions/Additional Instructions: Your liver function tests today are elevated however the CT scan did not show any signs of an abscess. You do need follow-up with your primary doctor and also your liver specialist at [facility]. I recommend that you give them a call for a follow-up. Return to the emergency department for any new or worsening symptoms. Referrals: Chi Mendoza MD [Primary Care Provider] - Visit Report Forms: Patient Portal/API
--- NOTE | 2022-01-03 12:00 | DI.CT.S_ITS ---
PROCEDURE: CT ABDOMEN PELVIS W CON INDICATIONS: History of hepatobiliary abscess with fevers TECHNIQUE: After the administration of intravenous contrast, axial sections acquired from the lung bases to the pubic symphysis. Coronal and sagittal reformats were performed. For radiation dose reduction, the following was used: automated exposure control, adjustment of mA and/or kV according to patient size. COMPARISON: [facility], CT, CT ABDOMEN PELVIS W CON, 09/06/2021, 16:51. FINDINGS: Image quality: Excellent. Lung bases: Lung bases are clear. Heart size is normal. Solid organs: Liver: The liver has mild intrahepatic biliary ductal dilatation. An area of ill-defined arterial enhancement is present within the medial aspect of the right lobe of the liver centered on series 2, image 14. Previously seen abscess in the right lobe of the liver has resolved. The portal vein and hepatic veins are patent. Biliary: Status post cholecystectomy. Pancreas: The pancreas has no mass or ductal dilatation. There is no surrounding inflammation. Spleen: Normal size. There are no masses. Adrenals: No hypertrophy or nodules. Kidneys: No obstructive calculus or hydronephrosis. No solid mass. No cystic mass. Peritoneum and bowel: The distal esophagus and stomach are normal. The small bowel has a normal caliber but has fluid throughout. Increased stool is seen throughout the large bowel. The large bowel has a normal caliber and appearance. The appendix is not distinctly visualized, however there are no CT findings to suggest acute appendicitis. No free fluid or air. Nodes and vessels: No retroperitoneal or mesenteric adenopathy by size criteria. The aorta has atherosclerosis with no aneurysmal dilatation. Miscellaneous: There is a ventral hernia containing small bowel, similar to the prior CT. PELVIS: Genitourinary: The bladder has no wall thickening or mass. No bladder wall mass. The prostate is enlarged with a central calcification. Bones: Degenerative changes with no focal abnormality. No vertebral body compression fractures. IMPRESSION: 1. Previously seen biliary stent is no longer present. 2. Mild intrahepatic biliary ductal dilatation. 3. Hepatic abscess in the right lobe hepatic segment has resolved. 4. Small hiatal hernia. 5. Ill-defined area of enhancement in the medial right lower lobe. This is located in the region of a previous biliary stent. This is of unclear significance, however a hepatobiliary neoplasm could cause this appearance. Dictated by: Roberto Coker M.D. on 01/03/2022 at 13:32 Approved by: Roberto Coker M.D. on 01/03/2022 at 13:42
[2022-01-03 12:11] LABS: Add Manual Diff / Slide Review NO; Basophils Absolute Auto 100 /uL (0-100); Basophils Percent Auto 0.5 % (0-2); Eosinophils Absolute Auto 0 /uL (0-450); Eosinophils Percent Auto 0.4 % (2-4); Hemoglobin 13.1 g/dL (13.5-17.5); Lymphocytes Absolute Auto 1000 /uL (1100-4500); Lymphocytes Percent Auto 9.8 % (25-40); Mean Corpuscular HGB Conc 34.4 % (30-36); Mean Corpuscular Hemoglobin 34.3 PG (26-34); Mean Corpuscular Volume 99.8 fL (80-100); Monocytes Absolute Auto 1300 /uL (0-900); Neutrophils Absolute Auto 8200 /uL (1500-7000); Neutrophils Percent Auto 77.3 % (50-75); Platelet Count 247 X10^3/uL (150-400); Red Blood Cell Count 3.81 X10^6/uL (4.5-5.9); Red Cell Distribution Width 13.8 % (11.6-14.8); White Blood Cell Count 10.7 X10^3/uL (4.5-11.0)
[2022-01-03 12:15] LABS: Alanine Aminotransferase 217 IU/L (<50); Albumin Globulin Ratio 0.9 (1.0-2.8); Alkaline Phosphatase 1139 U/L (38-126); Aspartate Aminotransferase 606 IU/L (17-59); BUN Creatinine Ratio 28.8 (6-22); Bilirubin Total 3.7 mg/dL (0.2-1.3); Blood Urea Nitrogen 21 mg/dL (9-20); Calcium 9.9 mg/dL (8.4-10.2); Carbon Dioxide 25 mmol/L (22-32); Chloride 97 mmol/L (98-107); Estimated Glomerular Filt Rate > 60 mL/min (>60); Globulin 4.4 g/dL (1.7-4.1); Glucose 90 mg/dL (80-110); Lipase 137 U/L (23-300); Sodium 131 mmol/L (137-145); Total Protein 8.4 g/dL (6.3-8.2)
[2022-01-03 12:19] LABS: HEMOLYSIS 89 (0-50)
[2022-01-03 12:20] LABS: Potassium 4.9 mmol/L (3.4-5.1)
[2022-01-03 14:19] VITALS: BP 148/69; PULSE 67; RESP 18; O2SAT 97
== END 2022-01-03 14:20 | disposition home or self-care (01) ==
PROVIDERS: Emergency Provider Emergency Medicine; PCP Internal Medicine
DX: R74.01 Elevation of levels of liver transaminase levels (principal); Z87.19 Personal history of other diseases of the digestive system
CPT/HCPCS: 36415; 74177; 80053; 83690; 85025; 99283; 99284; Q9967

== ENCOUNTER → 2022-01-23 07:06 | Outpatient (CLI) | payer MEDICARE, SELFPAY ==
[2022-01-23 08:39] LABS: Add Manual Diff / Slide Review NO; Basophils Absolute Auto 100 /uL (0-100); Eosinophils Absolute Auto 100 /uL (0-450); Eosinophils Percent Auto 1.7 % (2-4); Hematocrit 36.1 % (41-53); Hemoglobin 12.5 g/dL (13.5-17.5); Lymphocytes Absolute Auto 1100 /uL (1100-4500); Lymphocytes Percent Auto 20.1 % (25-40); Mean Corpuscular HGB Conc 34.8 % (30-36); Mean Corpuscular Hemoglobin 35.1 PG (26-34); Monocytes Absolute Auto 600 /uL (0-900); Monocytes Percent Auto 11.3 % (3-14); Neutrophils Absolute Auto 3600 /uL (1500-7000); Neutrophils Percent Auto 65.9 % (50-75); Platelet Count 228 X10^3/uL (150-400); Red Blood Cell Count 3.58 X10^6/uL (4.5-5.9); White Blood Cell Count 5.5 X10^3/uL (4.5-11.0)
[2022-01-23 09:24] LABS: Alanine Aminotransferase 102 IU/L (<50); Albumin 3.7 g/dL (3.5-5.0); Albumin Globulin Ratio 0.9 (1.0-2.8); Alkaline Phosphatase 647 U/L (38-126); Aspartate Aminotransferase 456 IU/L (17-59); BUN Creatinine Ratio 17.9 (6-22); Bilirubin Total 1.9 mg/dL (0.2-1.3); Blood Urea Nitrogen 15 mg/dL (9-20); Calcium 9.9 mg/dL (8.4-10.2); Carbon Dioxide 28 mmol/L (22-32); Chloride 97 mmol/L (98-107); Estimated Glomerular Filt Rate > 60 mL/min (>60); Globulin 3.9 g/dL (1.7-4.1); Glucose 111 mg/dL (80-110); HEMOLYSIS < 15 (0-50); Potassium 4.6 mmol/L (3.4-5.1); Sodium 134 mmol/L (137-145); Total Protein 7.6 g/dL (6.3-8.2)
== END ==
PROVIDERS: PCP Internal Medicine
DX: C22.1 Intrahepatic bile duct carcinoma (principal)
CPT/HCPCS: 36415; 80053; 85025

== ENCOUNTER → 2022-03-06 07:16 | Outpatient (CLI) | payer MEDICARE, SELFPAY ==
[2022-03-06 07:58] LABS: Add Manual Diff / Slide Review NO; Basophils Absolute Auto 0 /uL (0-100); Basophils Percent Auto 0.7 % (0-2); Eosinophils Absolute Auto 100 /uL (0-450); Eosinophils Percent Auto 1.6 % (2-4); Hematocrit 40.1 % (41-53); Hemoglobin 13.6 g/dL (13.5-17.5); Lymphocytes Absolute Auto 1000 /uL (1100-4500); Lymphocytes Percent Auto 15.8 % (25-40); Mean Corpuscular HGB Conc 33.9 % (30-36); Mean Corpuscular Hemoglobin 34.7 PG (26-34); Mean Corpuscular Volume 102.3 fL (80-100); Monocytes Absolute Auto 800 /uL (0-900); Monocytes Percent Auto 11.5 % (3-14); Neutrophils Absolute Auto 4700 /uL (1500-7000); Neutrophils Percent Auto 70.4 % (50-75); Platelet Count 192 X10^3/uL (150-400); Red Blood Cell Count 3.92 X10^6/uL (4.5-5.9); Red Cell Distribution Width 13.8 % (11.6-14.8); White Blood Cell Count 6.6 X10^3/uL (4.5-11.0)
[2022-03-06 08:26] LABS: Alanine Aminotransferase 157 IU/L (<50); Albumin 3.9 g/dL (3.5-5.0); Albumin Globulin Ratio 0.9 (1.0-2.8); Alkaline Phosphatase 846 U/L (38-126); Aspartate Aminotransferase 542 IU/L (17-59); BUN Creatinine Ratio 19.3 (6-22); Bilirubin Total 1.8 mg/dL (0.2-1.3); Blood Urea Nitrogen 17 mg/dL (9-20); Calcium 10.2 mg/dL (8.4-10.2); Carbon Dioxide 27 mmol/L (22-32); Chloride 99 mmol/L (98-107); Estimated Glomerular Filt Rate > 60 mL/min (>60); Globulin 4.2 g/dL (1.7-4.1); Glucose 110 mg/dL (80-110); HEMOLYSIS < 15 (0-50); Sodium 135 mmol/L (137-145); Total Protein 8.1 g/dL (6.3-8.2)
== END ==
PROVIDERS: PCP Internal Medicine
DX: K83.1 Obstruction of bile duct (principal); R74.8 Abnormal levels of other serum enzymes; K83.09 Other cholangitis; K83.01 Primary sclerosing cholangitis; C22.1 Intrahepatic bile duct carcinoma
CPT/HCPCS: 36415; 80053; 85025

== ENCOUNTER 2022-03-20 17:47 | Emergency (ER) | payer MEDICARE, SELFPAY ==
[2022-03-20] VITALS (17 sets, daily range): BP systolic 101–140; BP diastolic 52–78; PULSE 48–131; RESP 16; TEMP 36.6; O2SAT 80–99; BMI 22.1
[2022-03-20 18:18] LABS: INR 1.3 (0.9-1.3); Prothrombin Time 15.4 SECONDS (10.1-12.7)
[2022-03-20 18:21] LABS: PTT Partial Thromboplastin Tim 33 SECONDS (26-36)
[2022-03-20 18:24] LABS: Alanine Aminotransferase 110 IU/L (<50); Albumin 3.5 g/dL (3.5-5.0); Albumin Globulin Ratio 0.8 (1.0-2.8); Alkaline Phosphatase 691 U/L (38-126); Aspartate Aminotransferase 421 IU/L (17-59); BUN Creatinine Ratio 32.4 (6-22); Bilirubin Total 1.5 mg/dL (0.2-1.3); Blood Urea Nitrogen 24 mg/dL (9-20); Calcium 9.3 mg/dL (8.4-10.2); Carbon Dioxide 26 mmol/L (22-32); Chloride 97 mmol/L (98-107); Estimated Glomerular Filt Rate > 60 mL/min (>60); Globulin 4.2 g/dL (1.7-4.1); Glucose 112 mg/dL (80-110); HEMOLYSIS < 15 (0-50); Lipase 121 U/L (23-300); Sodium 129 mmol/L (137-145); Total Protein 7.7 g/dL (6.3-8.2)
[2022-03-20 18:32] LABS: Add Manual Diff / Slide Review NO; Basophils Absolute Auto 100 /uL (0-100); Basophils Percent Auto 0.6 % (0-2); Eosinophils Absolute Auto 0 /uL (0-450); Eosinophils Percent Auto 0.2 % (2-4); Hematocrit 35.8 % (41-53); Hemoglobin 12.3 g/dL (13.5-17.5); Lymphocytes Absolute Auto 700 /uL (1100-4500); Lymphocytes Percent Auto 6.8 % (25-40); Mean Corpuscular HGB Conc 34.3 % (30-36); Mean Corpuscular Hemoglobin 34.4 PG (26-34); Mean Corpuscular Volume 100.5 fL (80-100); Monocytes Absolute Auto 1300 /uL (0-900); Monocytes Percent Auto 11.8 % (3-14); Neutrophils Absolute Auto 8900 /uL (1500-7000); Neutrophils Percent Auto 80.6 % (50-75); Platelet Count 240 X10^3/uL (150-400); Red Blood Cell Count 3.56 X10^6/uL (4.5-5.9)
[2022-03-20 18:40] LABS: Procalcitonin 0.76 ng/mL (<0.5)
--- NOTE | 2022-03-20 19:00 | ED.WEAKNESS ---
HPI - Weakness General Chief complaint: Weakness Stated complaint: Tremors Time Seen by Provider: 03/20/22 18:47 History of Present Illness HPI Narrative: Patient brought in by EMS from home. He lives alone. Has complaints couple days of chills and general malaise and tired fatigue. Decreased appetite and decreased urine output. No dysuria. No fever. No cough cold congestion denies denies any abdominal pain back pain or or chest pain. He is awake alert oriented x4. No hallucinations. Please see HPI below from visit here 2 months ago. Did have baseline transaminitis as well as reassuring CT scan 2 months ago done here. Was discharged home. Denies any falls or injuries. General Chief Complaint: Recheck/Abnormal Lab/Rx Stated Complaint: Abnormal labs- sent by Dr Mendoza Time Seen by Provider: 01/03/22 11:15 Source: patient Mode of arrival: Ambulatory History of Present Illness HPI narrative: Patient is an 81-year-old male.? 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 Is not currently undergoing any chemotherapy.? He has had issues with infections in the past around his hepatobiliary system.? Most recent 1 was in September of this year.? He is not currently on any antibiotics.? He is not having any discomfort.? Has had ERCPs in the past and has had polyps removed although they have all been ?precancerous ?.? He states that for the past several days/week he has had subjective fevers and chills and he was concerned about another infection so earlier this week he went to his primary provider.? Had labs drawn.? Got a phone call today stating that his liver enzymes were elevated and was asked to come to the emergency department for evaluation.? Is not currently having any fevers.? Is having some dark-colored urine.? Some constipation.? No abdominal pain.? No nausea vomiting.? No chest pain.? No shortness of breath. MDM Narrative Medical decision making narrative: Patient does have elevations in his LFTs and also has a slight elevation in his bilirubin today.? He is not jaundiced.? He has no discomfort with palpation.? The CT scan does not show any signs of abscess.? We did discuss the CT scan findings.? No further workup needed in the emergency department.? No indication for admission to the hospital today.? I did tell him that his liver function tests seem to be worsening and he needs to contact his liver doctors at [facility] to discuss further evaluation and treatment.? He was given return precautions.? He expressed understanding and agreement. Related Data Allergies Allergy/AdvReac Type Severity Reaction Status Date / Time No Known Drug Allergies Allergy Verified 01/03/22 11:25 Review of Systems Review of Systems Narrative: GENERAL: Positive chills, fatigue, malaise, negative fever, sweats. HEENT: Denies sinus pain, ear pain, sore throat RESPIRATORY: Denies dyspnea, cough CARDIOVASCULAR: Denies chest pain, palpitations GASTROINTESTINAL: Denies nausea, vomiting, abdominal pain : Denies dysuria, frequency, hematuria, positive decreased urine output MUSCULOSKELETAL: denies muscle or bony pain SKIN: Denies rash, skin lesions NEUROLOGIC: Denies weakness, numbness ROS Unobtainable: All systems reviewed & are unremarkable except as noted in HPI and below Patient History Medical History Hematuria Hyponatremia Inguinal hernia unilateral, non-recurrent Reaction to influenza immunization Social History Smoking Status: Current every day smoker Smoking Status: Current every day smoker alcohol intake frequency: holidays/special occasions only Substance Use Type: does not use Exam Narrative Exam Narrative: GENERAL: in no distress, not toxic not dyspneic HEAD: Normocephalic. EYES: Pupils equal round No scleral icterus. ENT: Mucous membranes moist. NECK: Trachea midline. CARDIOVASCULAR: Regular rate and rhythm without murmurs RESPIRATORY: Clear to auscultation. Breath sounds equal bilaterally. No wheezes, rales, or rhonchi. GASTROINTESTINAL: Abdomen soft, non-tender EXTREMITIES: No gross deformities. BACK: No flank tenderness. NEURO: AOx4. Clear speech no facial droop light touch intact bilateral face hands and strong equal swimming teacher. He is awake alert oriented to self date time, his birthday is tomorrow. Oriented to year and events SKIN: Warm and dry PSYCH: Not anxious, is cooperative, no auditory or visual hallucinations Initial Vital Signs Initial Vital Signs: Vital Signs Pulse Rate 69 03/20/22 17:52 Pulse Oximetry 96 03/20/22 17:52 Course Course Course Narrative: No new issues during course of stay. Orders Ordered: ED Orders 03/20/22 18:00 Complete Blood Count AUTO DIFF Stat Comprehensive Metabolic Panel Stat Lactate (Lactic Acid) Stat Lipase Stat Partial Thromboplastin Time Stat Procalcitonin Stat Prothrombin Time INR Stat 03/20/22 18:09 EKG-12 Lead Stat 03/20/22 18:30 Blood Culture Stat 03/20/22 19:11 Respiratory Panel (Film Array) Stat 03/20/22 22:40 Urine Culture Stat Urine Microscopic Stat Discontinued Medications Sodium Chloride (Normal Saline 0.9%) 1,000 mls @ 1,000 mls/hr IV BOLUS ONE Stop: 03/20/22 19:59 Last Infusion: 03/20/22 22:22 Dose: 0 mls/hr Documented By: Admin: 03/20/22 19:10 Dose: 1,000 mls/hr Documented By: CTS Reevaluation(s) Reevaluation #1: Patient did feel better after IV fluids. Able urinate here. Is slightly dark. Reviewed with him he likely slightly dehydrated. Chills nonspecific at this time per however his laboratory studies are as baseline. Does not want another CT scan of the abdomen and pelvis. He denies any abdominal pain. Return precautions reviewed with him. He has appointment April 08 with his GI doctor for ERCP Time: 22:50 Vital Signs Vital signs: Vital Signs - 8 hr 03/20/22 18:30 03/20/22 18:30 03/20/22 19:00 Pulse Rate 61 57 L Blood Pressure 101/55 L Pulse Oximetry 97 97 03/20/22 19:01 03/20/22 19:01 03/20/22 19:30 Pulse Rate 56 L Blood Pressure 111/54 L 118/58 L Pulse Oximetry 97 03/20/22 19:30 03/20/22 20:00 03/20/22 20:00 Pulse Rate 54 L 54 L Blood Pressure 102/53 L Pulse Oximetry 96 96 03/20/22 20:30 03/20/22 20:30 03/20/22 21:00 Pulse Rate 54 L 57 L Blood Pressure 103/53 L Pulse Oximetry 97 96 03/20/22 21:01 03/20/22 21:01 03/20/22 21:30 Pulse Rate 59 L Blood Pressure 137/60 140/63 Pulse Oximetry 97 03/20/22 21:30 03/20/22 22:00 03/20/22 22:00 Pulse Rate 57 L 56 L Blood Pressure 120/59 L Pulse Oximetry 99 96 03/20/22 22:18 03/20/22 22:30 03/20/22 23:16 Pulse Rate 54 L 48 L Blood Pressure 121/57 L Pulse Oximetry 96 80 L 03/20/22 23:18 03/20/22 23:18 Pulse Rate 131 H Blood Pressure 130/75 Pulse Oximetry 96 MDM - Weakness Differential Diagnosis Differential diagnosis: Likely acute myocardial infarction, anemia, hypoglycemia, sepsis, dehydration and other (UTI) Lab Data Result diagrams: 03/20/22 18:00 03/20/22 18:00 Labs: Lab Results 03/20/22 03/20/22 03/20/22 Range/Units 18:00 18:00 18:00 WBC 11.0 (4.5-11.0) X10^3/uL RBC 3.56 L (4.5-5.9) X10^6/uL Hgb 12.3 L (13.5-17.5) g/dL Hct 35.8 L (41-53) % MCV 100.5 H (80-100) fL MCH 34.4 H (26-34) PG MCHC 34.3 (30-36) % RDW 13.0 (11.6-14.8) % Plt Count 240 (150-400) X10^3/uL Neut % (Auto) 80.6 H (50-75) % Lymph % (Auto) 6.8 L (25-40) % [place] % (Auto) 11.8 (3-14) % Eos % (Auto) 0.2 L (2-4) % Baso % (Auto) 0.6 (0-2) % Neut # (Auto) 8900 H (5886-3775) /uL Lymph # (Auto) 700 L (8761-4976) /uL [place] # (Auto) 1300 H (0-900) /uL Eos # (Auto) 0 (0-450) /uL Baso # (Auto) 100 (0-100) /uL PT (10.1-12.7) SECONDS INR (0.9-1.3) APTT (26-36) SECONDS Sodium 129 L (137-145) mmol/L Potassium 4.0 (3.4-5.1) mmol/L Chloride 97 L (98-107) mmol/L Carbon Dioxide 26 (22-32) mmol/L BUN 24 H (9-20) mg/dL Creatinine 0.74 (0.66-1.25) mg/dL Estimated GFR > 60 (>60) mL/min BUN/Creatinine Ratio 32.4 H (6-22) Glucose 112 H (80-110) mg/dL Lactate 1.0 (0.7-2.1) mmol/L Calcium 9.3 (8.4-10.2) mg/dL Total Bilirubin 1.5 H (0.2-1.3) mg/dL AST 421 H (17-59) IU/L ALT 110 H (<50) IU/L Alkaline Phosphatase 691 H (38-126) U/L Total Protein 7.7 (6.3-8.2) g/dL Albumin 3.5 (3.5-5.0) g/dL Globulin 4.2 H (1.7-4.1) g/dL Albumin/Globulin Ratio 0.8 L (1.0-2.8) Lipase 121 (23-300) U/L Procalcitonin 0.76 H (<0.5) ng/mL Urine RBC (0-5/HPF) Urine WBC (0-5/HPF) Urine Bacteria (None) Ur Culture Indicated? Chlamy pneumoniae PCR (Not Detect) Adenovirus (PCR) (Not Detect) B. pertussis DNA (PCR) (Not Detecte) B.parapertussis DNA PCR (Not Detecte) Coronavirus OC43 (PCR) (Not Detect) Coronavirus HKU1 (PCR) (Not Detect) Coronavirus 229E (PCR) (Not Detect) SARS-CoV-2 (PCR) (Not Detecte) Coronavirus NL63 (PCR) (Not Detect) Human Metapneumovir PCR (Not Detect) Influenza Type A (PCR) (Not Detect) Influenza Type B (PCR) (Not Detect) M. pneumoniae (PCR) (Not Detect) Parainfluenza 1 (PCR) (Not Detect) Parainfluenza 2 (PCR) (Not Detect) Parainfluenza 3 (PCR) (Not Detect) Parainfluenza 4 (PCR) (Not Detect) RSV (PCR) (Not Detect) Entero/Rhino (PCR) (Not Detect) 03/20/22 03/20/22 03/20/22 Range/Units 18:00 19:11 22:40 WBC (4.5-11.0) X10^3/uL RBC (4.5-5.9) X10^6/uL Hgb (13.5-17.5) g/dL Hct (41-53) % MCV (80-100) fL MCH (26-34) PG MCHC (30-36) % RDW (11.6-14.8) % Plt Count (150-400) X10^3/uL Neut % (Auto) (50-75) % Lymph % (Auto) (25-40) % [place] % (Auto) (3-14) % Eos % (Auto) (2-4) % Baso % (Auto) (0-2) % Neut # (Auto) (0663-3607) /uL Lymph # (Auto) (6887-0586) /uL [place] # (Auto) (0-900) /uL Eos # (Auto) (0-450) /uL Baso # (Auto) (0-100) /uL PT 15.4 H (10.1-12.7) SECONDS INR 1.3 (0.9-1.3) APTT 33 (26-36) SECONDS Sodium (137-145) mmol/L Potassium (3.4-5.1) mmol/L Chloride (98-107) mmol/L Carbon Dioxide (22-32) mmol/L BUN (9-20) mg/dL Creatinine (0.66-1.25) mg/dL Estimated GFR (>60) mL/min BUN/Creatinine Ratio (6-22) Glucose (80-110) mg/dL Lactate (0.7-2.1) mmol/L Calcium (8.4-10.2) mg/dL Total Bilirubin (0.2-1.3) mg/dL AST (17-59) IU/L ALT (<50) IU/L Alkaline Phosphatase (38-126) U/L Total Protein (6.3-8.2) g/dL Albumin (3.5-5.0) g/dL Globulin (1.7-4.1) g/dL Albumin/Globulin Ratio (1.0-2.8) Lipase (23-300) U/L Procalcitonin (<0.5) ng/mL Urine RBC 0-1/hpf (0-5/HPF) Urine WBC None seen (0-5/HPF) Urine Bacteria None seen (None) Ur Culture Indicated? Cult not indicated Chlamy pneumoniae PCR Not detected (Not Detect) Adenovirus (PCR) Not detected (Not Detect) B. pertussis DNA (PCR) Not detected (Not Detecte) B.parapertussis DNA PCR Not detected (Not Detecte) Coronavirus OC43 (PCR) Not detected (Not Detect) Coronavirus HKU1 (PCR) Not detected (Not Detect) Coronavirus 229E (PCR) Not detected (Not Detect) SARS-CoV-2 (PCR) Not detected (Not Detecte) Coronavirus NL63 (PCR) Not detected (Not Detect) Human Metapneumovir PCR Not detected (Not Detect) Influenza Type A (PCR) Not detected (Not Detect) Influenza Type B (PCR) Not detected (Not Detect) M. pneumoniae (PCR) Not detected (Not Detect) Parainfluenza 1 (PCR) Not detected (Not Detect) Parainfluenza 2 (PCR) Not detected (Not Detect) Parainfluenza 3 (PCR) Not detected (Not Detect) Parainfluenza 4 (PCR) Not detected (Not Detect) RSV (PCR) Not detected (Not Detect) Entero/Rhino (PCR) Not detected (Not Detect) Urine Dip Bedside Urine Glucose Negative Bedside Urine Bilirubin - Negative Bedside Urine Ketone - Negative Urine Specific [place] 1.015 Bedside Urine Occult Blood +/- Bedside Urine pH 6 Bedside Urine Protein - Negative Bedside Urine Urobilinogen - Negative Bedside Urine Nitrite - Negative Bedside Urine Leukocytes - Negative Esterase MDM Narrative Medical decision making narrative: Appropriate for discharge home. Exam and laboratory studies otherwise reassuring. No indication for repeat CT scan at this time. Patient does not want a CT scan as well. Patient has ERCP scheduled April 08 with his GI doctor. Blood pressure did improve with IV hydration. Patient could be slightly dehydrated. Kimper much better after IV fluids. Return precautions reviewed with him. He desires discharge home. Discharge Plan Departure Patient Disposition: Home Clinical Impression: Chills (without fever) Instructions: DI for Dehydration -- Adult Activity Restrictions/Additional Instructions: See family doctor this week for re-evaluation. Be sure to keep well hydrated. Return if worse if any questions or concerns. Laboratory studies tonight appear to be at your baseline results for your liver. Return if worse if any questions or concerns. Referrals: Chi Mendoza MD [Primary Care Provider] - Visit Report Forms: Patient Portal/API
[2022-03-20] MEDS: SODIUM CHLORIDE 0.9% 1,000 ML 1000 ML IV (19:10)
[2022-03-20 21:24] LABS: Adenovirus Not Detected (Not Detect); B. parapertussis Not Detected (Not Detecte); Bordetella pertussis Not Detected (Not Detecte); Chlamydophila pneumoniae Not Detected (Not Detect); Coronavirus 229E Not Detected (Not Detect); Coronavirus HKU1 Not Detected (Not Detect); Coronavirus NL 63 Not Detected (Not Detect); Coronavirus OC43 Not Detected (Not Detect); Human Metapneumovirus Not Detected (Not Detect); Human Rhinovirus/Enterovirus Not Detected (Not Detect); Influenza A Not Detected (Not Detect); Influenza B Not Detected (Not Detect); Mycoplasma pneumoniae Not Detected (Not Detect); Parainfluenza Virus 1 Not Detected (Not Detect); Parainfluenza Virus 2 Not Detected (Not Detect); Parainfluenza Virus 3 Not Detected (Not Detect); Parainfluenza Virus 4 Not Detected (Not Detect); Respiratory Syncytial Virus Not Detected (Not Detect); SARS- CoV-2 Not Detected (Not Detecte)
[2022-03-20 22:49] LABS: Bacteria Urine None Seen; Culture Indicated Urine Cult Not Indicated; RBC Urine 0-1/HPF (0-5/HPF); WBC Urine None Seen (0-5/HPF)
== END 2022-03-20 22:50 | disposition home or self-care (01) ==
PROVIDERS: Emergency Provider Emergency Medicine; PCP Internal Medicine
DX: E86.0 Dehydration (principal); R68.83 Chills (without fever); Z20.822 Contact with and (suspected) exposure to COVID-19
CPT/HCPCS: 36415; 80053; 81003; 81015; 83605; 83690; 84145; 85025; 85610; 85730; 87040; 87086; 87633; 96360; 96361; 99284

== ENCOUNTER → 2022-04-12 08:36 | Outpatient (CLI) | payer MEDICARE, SELFPAY ==
[2022-04-12 10:14] LABS: Add Manual Diff / Slide Review NO; Basophils Absolute Auto 100 /uL (0-100); Basophils Percent Auto 0.8 % (0-2); Eosinophils Absolute Auto 100 /uL (0-450); Eosinophils Percent Auto 1.8 % (2-4); Hematocrit 39.8 % (41-53); Hemoglobin 13.6 g/dL (13.5-17.5); Lymphocytes Absolute Auto 1000 /uL (1100-4500); Lymphocytes Percent Auto 15.1 % (25-40); Mean Corpuscular HGB Conc 34.2 % (30-36); Mean Corpuscular Hemoglobin 34.1 PG (26-34); Mean Corpuscular Volume 99.7 fL (80-100); Monocytes Absolute Auto 900 /uL (0-900); Monocytes Percent Auto 12.8 % (3-14); Neutrophils Absolute Auto 4800 /uL (1500-7000); Neutrophils Percent Auto 69.5 % (50-75); Platelet Count 229 X10^3/uL (150-400); Red Blood Cell Count 3.99 X10^6/uL (4.5-5.9); Red Cell Distribution Width 13.4 % (11.6-14.8); White Blood Cell Count 6.8 X10^3/uL (4.5-11.0)
[2022-04-12 10:47] LABS: HEMOLYSIS < 15 (0-50); Potassium 4.4 mmol/L (3.4-5.1)
[2022-04-12 10:48] LABS: Alanine Aminotransferase 107 IU/L (<50); Albumin 3.8 g/dL (3.5-5.0); Albumin Globulin Ratio 0.9 (1.0-2.8); Alkaline Phosphatase 694 U/L (38-126); Aspartate Aminotransferase 449 IU/L (17-59); BUN Creatinine Ratio 18.2 (6-22); Bilirubin Total 1.1 mg/dL (0.2-1.3); Blood Urea Nitrogen 16 mg/dL (9-20); Calcium 9.9 mg/dL (8.4-10.2); Carbon Dioxide 29 mmol/L (22-32); Chloride 98 mmol/L (98-107); Estimated Glomerular Filt Rate > 60 mL/min (>60); Globulin 4.1 g/dL (1.7-4.1); Glucose 51 mg/dL (80-110); Sodium 134 mmol/L (137-145); Total Protein 7.9 g/dL (6.3-8.2)
== END ==
PROVIDERS: PCP Internal Medicine
DX: K83.1 Obstruction of bile duct (principal); K83.01 Primary sclerosing cholangitis; R74.8 Abnormal levels of other serum enzymes; K83.09 Other cholangitis; C22.1 Intrahepatic bile duct carcinoma
CPT/HCPCS: 36415; 80053; 85025

== ENCOUNTER → 2022-05-09 10:45 | Outpatient (CLI) | payer MEDICARE, SELFPAY ==
[2022-05-09 11:39] LABS: Add Manual Diff / Slide Review NO; Basophils Absolute Auto 100 /uL (0-100); Basophils Percent Auto 0.6 % (0-2); Eosinophils Absolute Auto 100 /uL (0-450); Eosinophils Percent Auto 0.8 % (2-4); Hematocrit 39.9 % (41-53); Hemoglobin 13.2 g/dL (13.5-17.5); Lymphocytes Absolute Auto 900 /uL (1100-4500); Mean Corpuscular HGB Conc 33.2 % (30-36); Mean Corpuscular Hemoglobin 33.4 PG (26-34); Mean Corpuscular Volume 100.5 fL (80-100); Monocytes Absolute Auto 1100 /uL (0-900); Monocytes Percent Auto 11.6 % (3-14); Neutrophils Absolute Auto 7200 /uL (1500-7000); Platelet Count 266 X10^3/uL (150-400); Red Blood Cell Count 3.96 X10^6/uL (4.5-5.9); Red Cell Distribution Width 14.5 % (11.6-14.8); White Blood Cell Count 9.3 X10^3/uL (4.5-11.0)
[2022-05-09 12:30] LABS: Alanine Aminotransferase 114 IU/L (<50); Albumin 3.6 g/dL (3.5-5.0); Albumin Globulin Ratio 0.8 (1.0-2.8); Alkaline Phosphatase 660 U/L (38-126); Aspartate Aminotransferase 481 IU/L (17-59); Bilirubin Total 1.8 mg/dL (0.2-1.3); Blood Urea Nitrogen 15 mg/dL (9-20); Calcium 9.6 mg/dL (8.4-10.2); Carbon Dioxide 28 mmol/L (22-32); Chloride 97 mmol/L (98-107); Estimated Glomerular Filt Rate > 60 mL/min (>60); Globulin 4.4 g/dL (1.7-4.1); Glucose 111 mg/dL (80-110); HEMOLYSIS < 15 (0-50); Potassium 4.3 mmol/L (3.4-5.1); Sodium 135 mmol/L (137-145)
== END ==
PROVIDERS: PCP Internal Medicine
DX: C22.1 Intrahepatic bile duct carcinoma (principal)
CPT/HCPCS: 36415; 80053; 85025